=== PATIENT | female | born 1950 | race Caucasian/White ===

== ENCOUNTER 2017-03-03 09:36 | Emergency (ER) | payer MEDICARE, OTHER ==
[~2017-03-03] VITALS: Ht 152.4 cm; Wt 78.0 kg
[~2017-03-03 09:36] MED LIST: ASPI81TA16 PO; ATOR40TA68 PO; CARV6.2579 PO; CILO100T PO; ISOS60TA PO; LEFL20TA18 PO; OMEP40CA6 PO; PRED25 PO
[2017-03-03 09:43] VITALS: Ht 152.4 cm; Wt 78.0 kg
[2017-03-03] MEDS ORDERED: NITROGLYCERIN 2% 1 GM OINT PKT TD STA (10:43)
[2017-03-03] MEDS ORDERED: morphine 4 MG/ML VIAL IV STA (10:43)
[2017-03-03] MEDS ORDERED: ONDANSETRON 4 MG INJ IV STA (10:43)
[2017-03-03] MEDS ORDERED: ASPIRIN 325 MG TAB PO STA (10:43)
[2017-03-03] MEDS ORDERED: OLME1TAB5 PO (10:46)
[2017-03-03] MEDS ORDERED: SUMA50TA3 PO (10:47)
[2017-03-03] MEDS ORDERED: IBUP400T22 PO (10:47)
[2017-03-03 10:57] LABS: ADD SCAN DIFF NO
[2017-03-03 11:02] LABS: BASOPHILS % 0.2 % (0.0-2.0); EOSINOPHILS # 0.1 10^3/ul (0.0-0.5); EOSINOPHILS % 1.2 % (0.0-7.0); HEMATOCRIT 29.9 % (37.0-47.0); HEMOGLOBIN 9.6 g/dl (12.0-16.0); LYMPHOCYTES # 1.9 10^3/ul (0.8-2.9); LYMPHOCYTES % 20.9 % (15.0-51.0); MEAN CORPUSCULAR HEMOGLOBIN 27.7 pg (29.0-33.0); MEAN CORPUSCULAR HGB CONC 32.1 g/dl (32.0-37.0); MEAN CORPUSCULAR VOLUME 86.4 fl (82.0-101.0); MONOCYTE # 0.8 10^3/ul (0.3-0.9); MONOCYTES % 8.9 % (0.0-11.0); NEUTROPHIL # 6.1 10^3/ul (1.6-7.5); NEUTROPHILS % 68.4 % (39.0-77.0); PLATELET COUNT 403 10^3/UL (140-415); RED BLOOD COUNT 3.46 10^6/ul (4.20-5.40); RED CELL DISTRIBUTION WIDTH 15.1 % (11.5-14.5)
--- NOTE | 2017-03-03 11:13 | RADRPT ---
PROCEDURE: Chest x-ray CLINICAL INDICATION: Chest pain TECHNIQUE: Chest single view COMPARISON: 01/08/2016 FINDINGS: The heart is normal in size. The pulmonary vessels are normal in caliber. The lungs are clear. Th e costophrenic angles are sharp. The visualized bony thorax is unremarkable. IMPRESSION: No acute cardiopulmonary disease. RPTAT: HH .Lauro Jackson MD, Date Time Electronically viewed and signed by .Lauro Jackson MD, on 03/03/2017 11:13 .W/
[2017-03-03 11:15] LABS: ALBUMIN 3.5 g/dl (3.3-4.9); CHLORIDE 100 mmol/L (97-110)
[2017-03-03 11:16] LABS: POTASSIUM 3.7 mmol/L (3.5-5.1); SODIUM 139 mmol/L (135-144)
[2017-03-03 11:18] LABS: ANION GAP 15 (8-16); ASPARTATE AMINO TRANSFERASE 18 IU/L (15-46); BILIRUBIN,INDIRECT 0.1 mg/dl (0-1.1); BILIRUBIN,TOTAL 0.1 mg/dl (0.2-1.3); CARBON DIOXIDE 28 mmol/L (21-31); CREATININE 0.72 mg/dl (0.44-1.00)
[2017-03-03 11:19] LABS: ALANINE AMINOTRANSFERASE 18 IU/L (13-69); ALBUMIN/GLOBULIN RATIO 0.85; ALKALINE PHOSPHATASE 61 IU/L (42-121); BLOOD UREA NITROGEN 20 mg/dl (7-20); CALCIUM 9.4 mg/dl (8.4-10.2); GLUCOSE 102 mg/dl (70-220); TOTAL PROTEIN 7.6 g/dl (6.1-8.1)
[2017-03-03 11:23] LABS: INR 1.13; PROTIME 14.5 Sec (12.2-14.2); PT RATIO 1.1
[2017-03-03 11:29] LABS: TROPONIN-I < 0.012 ng/ml (0.00-0.12)
--- NOTE | 2017-03-03 13:49 | ERA ---
ER Documentation Chief Complaint Date/Time DATE: 03/03/17 TIME: 13:47 Chief Complaint CHEST PAIN RADIATING TO ARM PAIN.PRESSURE LIKE PAIN HPI This is 66-year-old female with a history of hypertension high cholesterol rheumatoid arthritis complaining of substernal chest pressure that was severe yesterday and recurred again today that radiates up into the throat with shortness of breath and diaphoresis. The patient was admitted here in 2012 for workup for chest pain has not had a workup since. The patient was admitted here December 2016 for sepsis. Patient says the pain comes on at rest. No recent cough infection fever prerna pain vomiting diarrhea. She says currently her pain is very mild ROS All systems reviewed and are negative except as per history of present illness. Medications Home Meds Reported Medications Ibuprofen* (Ibuprofen*) 400 Mg Tablet, 400 MG PO QID, TAB 03/03/17 Sumatriptan Succinate* (Sumatriptan Succinate*) 50 Mg Tablet, 50 MG PO DAILY Y for MIGRAINE HEADACHE, TAB May repeat after 2 hours if needed; MAX 200 mg/24 hours 03/03/17 Olmesartan/Hydrochlorothiazide (Benicar Hct 40-25 mg Tablet) 1 Each Tablet, 1 EACH PO DAILY, TAB 03/03/17 Isosorbide Mononitrate* (Isosorbide Mononitrate*) 60 Mg Tab.er.24h, 60 MG PO DAILY, TAB 01/06/16 Cilostazol* (Cilostazol*) 100 Mg Tablet, 100 MG PO BID, TAB 01/06/16 Carvedilol* (Carvedilol*) 6.25 Mg Tablet, 6.25 MG PO BID, #60 TAB 01/06/16 Atorvastatin* (Atorvastatin*) 40 Mg Tablet, 40 MG PO QHS, #30 TAB 01/06/16 Leflunomide* (Leflunomide*) 20 Mg Tablet, 20 MG PO DAILY, #30 TAB 01/06/16 Prednisone (Prednisone) 2.5 Mg Tab, 5 MG PO DAILY, TAB 01/06/16 Omeprazole* (Omeprazole*) 40 Mg Capsule.dr, 40 MG PO DAILY, #30 CAP 01/06/16 Discontinued Reported Medications Aspirin (LOW DOSE ASPIRIN EC) 81 Mg Tablet.dr, 81 MG PO DAILY 04/30/13 Allergies Allergies: Coded Allergies: Penicillins (Verified Allergy, Unknown, 01/06/16) hydromorphone (Unverified Adverse Reaction, Severe, 01/07/16) Uncoded Allergies: PCN (Allergy, Severe, rash for 6 months, 04/30/13) "STREPTOMYCIN" (Allergy, Unknown, 01/06/16) PMhx/Soc History of Surgery: Yes Anesthesia Reaction: No Hx Neurological Disorder: No Hx Respiratory Disorders: No Hx Cardiac Disorders: Yes Hx Psychiatric Problems: No Hx Miscellaneous Medical Probl: Yes (Rheumatoid Arthritis) Hx Alcohol Use: No Hx Substance Use: No Hx Tobacco Use: No Smoking Status: Never smoker FmHx Family History: No coronary disease Physical Exam Vitals Vital Signs Date Time Temp Pulse Resp B/P Pulse Ox O2 Delivery O2 Flow Rate FiO2 03/03/17 11:25 83 18 139/81 100 Room Air 03/03/17 09:43 98.1 101 18 125/78 98 Physical Exam Const: Well-developed, well-nourished Head: Atraumatic, normocephalic Eyes: Normal Conjunctiva, PERRLA, EOMI, normal sclera, no nystagmus ENT: Normal External Ears, Nose and Mouth, moist mucus membranes. Neck: Full range of motion. No meningismus, no lymphadenopathy. Resp: Clear to auscultation bilaterally, no wheezing, rhonchi, rales Cardio: Regular rate and rhythm, no murmurs, S1 S2 present Abd: Soft, non tender x 4, non distended. Normal bowel sounds, no guarding or rebound, no pulsitile abdominal masses or bruits Skin: No petechiae or rashes, no ecchymosis , no maculopapular rash Back: No midline or flank tenderness Ext: No cyanosis, or edema, FROM x 4, normal inspection, neurovascularly intact x 4 Neur: Awake and alert, STR 5/5 x 4, sensation intact x 4, no focal findings, cerebellum intact Psych: Normal Mood and Affect Result Diagram: 03/03/17 1035 03/03/17 1035 Results 24 hrs Laboratory Tests Test 03/03/17 10:35 White Blood Count 9.010^3/ul Red Blood Count 3.4610^6/ul Hemoglobin 9.6g/dl Hematocrit 29.9% Mean Corpuscular Volume 86.4fl Mean Corpuscular Hemoglobin 27.7pg Mean Corpuscular Hemoglobin Concent 32.1g/dl Red Cell Distribution Width 15.1% Platelet Count 10724^3/UL Mean Platelet Volume 9.0fl Neutrophils % 68.4% Lymphocytes % 20.9% Monocytes % 8.9% Eosinophils % 1.2% Basophils % 0.2% Nucleated Red Blood Cells % 0.0/100WBC Neutrophils # 6.110^3/ul Lymphocytes # 1.910^3/ul Monocytes # 0.810^3/ul Eosinophils # 0.110^3/ul Basophils # 0.010^3/ul Nucleated Red Blood Cells # 0.010^3/ul Prothrombin Time 14.5Sec Prothrombin Time Ratio 1.1 INR International Normalized Ratio 1.13 Activated Partial Thromboplast Time Pending Sodium Level 139mmol/L Potassium Level 3.7mmol/L Chloride Level 100mmol/L Carbon Dioxide Level 28mmol/L Anion Gap 15 Blood Urea Nitrogen 20mg/dl Creatinine 0.72mg/dl Glucose Level 102mg/dl Calcium Level 9.4mg/dl Total Bilirubin 0.1mg/dl Direct Bilirubin 0.00mg/dl Indirect Bilirubin 0.1mg/dl Aspartate Amino Transf (AST/SGOT) 18IU/L Alanine Aminotransferase (ALT/SGPT) 18IU/L Alkaline Phosphatase 61IU/L Troponin I < 0.012ng/ml Total Protein 7.6g/dl Albumin 3.5g/dl Globulin 4.10g/dl Albumin/Globulin Ratio 0.85 Current Medications Medications (Trade) Dose Ordered Sig/[place] Route PRN Reason Start Time Stop Time Status Last Admin Dose Admin Aspirin (Aspirin) 325 mg ONCE STAT PO 03/03/17 10:43 03/03/17 10:45 DC 03/03/17 10:58 Nitroglycerin (Nitroglycerin 2% Oint) 1 inch ONCE STAT TD 03/03/17 10:43 03/03/17 10:45 DC 03/03/17 10:59 Morphine Sulfate (morphine) 4 mg ONCE STAT IV 03/03/17 10:43 03/03/17 10:45 DC 03/03/17 11:00 Ondansetron HCl (Zofran Inj) 4 mg ONCE STAT IV 03/03/17 10:43 03/03/17 10:45 DC 03/03/17 11:00 Procedures/MDM PROCEDURE: Chest x-ray CLINICAL INDICATION: Chest pain TECHNIQUE: Chest single view COMPARISON: 01/08/2016 FINDINGS: The heart is normal in size. The pulmonary vessels are normal in caliber. The lungs are clear. The costophrenic angles are sharp. The visualized bony thorax is unremarkable. IMPRESSION: No acute cardiopulmonary disease. RPTAT: .Lauro Jackson MD, MD Date Time Electronically viewed and signed by .Lauro Jackson MD, on 03/03/2017 11:13 .W/ CC: ROCHELLE PEREZ DO EKG: Rate/Rhythm: Normal Sinus Rhythm,NL intervals QRS, ST, QT: NORMAL UT, QRS, QT] Impression: NORMAL EKG Patient's symptoms are concerning for cardiac cause will require inpatient workup and continuous monitoring. Further w/u for ischemia, arrhythmia, PE or dissection will be deferred to the inpatient team. Accepting Care Team: Current data and ongoing care discussed. Time: Time of admission Primary Provider: Vicente Consulting: [facility] Outstanding Data: none Departure Diagnosis: Primary Impression: Chest pain Qualified Code: R07.9 - Chest pain, unspecified type Condition: Stable ROCHELLE PEREZ DO Mar 03, 2017 13:49
[2017-03-03] MEDS ORDERED: ACETAMINOPHEN 325 MG TAB PO PRN ×2 (14:00→15:00)
[2017-03-03] MEDS ORDERED: ONDANSETRON 4 MG INJ IV PRN ×2 (14:00→15:00)
[2017-03-03 14:22] LABS: PARTIAL THROMBOPLASTIN TIME 27.3 Sec (25.0-35.0)
[2017-03-03] MEDS ORDERED: SUMATRIPTAN 50 MG TAB PO PRN (15:00)
[2017-03-03] MEDS ORDERED: NACL 0.9% 3 ML SYG IV SCH (15:00)
[2017-03-03] MEDS ORDERED: HYDROCODONE/APAP (5/325) TAB PO PRN (15:00)
[2017-03-03] MEDS ORDERED: BISACODYL 10 MG SUPP PR PRN (15:00)
[2017-03-03] MEDS ORDERED: MAGNESIUM HYDROXIDE 30ML CUP PO PRN (15:00)
[2017-03-03] MEDS ORDERED: DOCUSATE SODIUM 100 MG CAP PO PRN (15:00)
--- NOTE | 2017-03-03 15:47 | CONS ---
Date/Time of Note Date/Time of Note DATE: 03/03/17 TIME: 15:46 Assessment/Plan Assessment/Plan Additional Assessment/Plan ATYPICAL CEHST PAIN RA HTN HLP -CHECK TROPS, ECHO, EKGS MONIOTR ON TELE LOW LIKELIHOOD OF CAD ETIOLOGY LEIXSCAN CARDIOLTYE AM Consultation Date/Type/Reason Admit Date/Time Hx of Present Illness This is 66-year-old female with a history of hypertension high cholesterol rheumatoid arthritis complaining of chest pressure that was severe yesterday and recurred again today that radiates up into the throat with shortness of breath and diaphoresis. The patient was admitted here in 2012 for workup for chest pain has not had a workup since. The patient was admitted here December 2016 for sepsis. Patient says the pain comes on at rest. No recent cough infection fever prerna pain vomiting diarrhea. She says currently her pain is very mild. The patient is vairly constant fover the last day, epigastric, localized and no assoiced sytmoms - deneis substernal pain Social History Smoking Status: Never smoker Exam/Review of Systems Vital Signs Vitals Vital Signs Date Time Temp Pulse Resp B/P Pulse Ox O2 Delivery O2 Flow Rate FiO2 03/03/17 11:25 83 18 139/81 100 Room Air 03/03/17 09:43 98.1 Results Result Diagram: 03/03/17 1035 03/03/17 1035 Results 24 hrs Laboratory Tests Test 03/03/17 10:35 White Blood Count 9.0 # Red Blood Count 3.46 #L Hemoglobin 9.6 #L Hematocrit 29.9 #L Mean Corpuscular Volume 86.4 Mean Corpuscular Hemoglobin 27.7 L Mean Corpuscular Hemoglobin Concent 32.1 Red Cell Distribution Width 15.1 H Platelet Count 403 Mean Platelet Volume 9.0 Neutrophils % 68.4 Lymphocytes % 20.9 Monocytes % 8.9 Eosinophils % 1.2 Basophils % 0.2 Nucleated Red Blood Cells % 0.0 Neutrophils # 6.1 Lymphocytes # 1.9 Monocytes # 0.8 Eosinophils # 0.1 Basophils # 0.0 Nucleated Red Blood Cells # 0.0 Prothrombin Time 14.5 H Prothrombin Time Ratio 1.1 INR International Normalized Ratio 1.13 Activated Partial Thromboplast Time 27.3 Sodium Level 139 Potassium Level 3.7 Chloride Level 100 Carbon Dioxide Level 28 Anion Gap 15 Blood Urea Nitrogen 20 Creatinine 0.72 Glucose Level 102 Calcium Level 9.4 Total Bilirubin 0.1 L Direct Bilirubin 0.00 Indirect Bilirubin 0.1 Aspartate Amino Transf (AST/SGOT) 18 Alanine Aminotransferase (ALT/SGPT) 18 Alkaline Phosphatase 61 Troponin I < 0.012 Total Protein 7.6 Albumin 3.5 Globulin 4.10 H Albumin/Globulin Ratio 0.85 Medications Medications Current Medications Atorvastatin Calcium (Lipitor) 40 mg QHS PO ; Start 03/03/17 at 21:00 Carvedilol (Coreg) 6.25 mg BID PO ; Start 03/03/17 at 21:00 Isosorbide Mononitrate (Imdur) 60 mg DAILY PO ; Start 03/04/17 at 09:00 Leflunomide (Arava) 20 mg DAILY PO ; Start 03/04/17 at 09:00; Status UNV Prednisone (Prednisone) 5 mg DAILY PO ; Start 03/04/17 at 09:00 Sumatriptan Succinate (Imitrex) 50 mg DAILY PRN PO MIGRAINE HEADACHE; Start at 15:00 Miscellaneous Information 1 each DAILY PO ; Start 03/04/17 at 09:00; Status UNV Ondansetron HCl (Zofran Inj) 4 mg Q6H PRN IV NAUSEA AND/OR VOMITING; Start at 15:00 Aspirin (Aspirin) 81 mg DAILY PO ; Start 03/04/17 at 09:00 Acetaminophen (Tylenol Tab) 650 mg Q6H PRN PO PAIN LEVEL 1-3 OR FEVER; Start at 15:00 Acetaminophen/ Hydrocodone Bitart ([place] (5/325)) 1 tab Q6H PRN PO PAIN LEVEL 4 -6; Start 03/03/17 at 15:00 Docusate Sodium (Colace) 100 mg Q12H PRN PO CONSTIPATION; Start 03/03/17 at 15: 00 Magnesium Hydroxide (Milk Of Mag) 30 ml DAILY PRN PO CONSTIPATION; Start at 15:00 Bisacodyl (Dulcolax Supp) 10 mg DAILY PRN [place] CONSTIPATION; Start 03/03/17 at 15 :00 Pantoprazole (Protonix Tab) 40 mg BID PO ; Start 03/03/17 at 21:00 MAGNOLIA LUNDBERG MD Mar 03, 2017 15:47
[2017-03-03] MEDS ORDERED: predniSONE 2.5 MG TAB PO SCH (16:00)
[2017-03-03 16:58] LABS: CREATINE KINASE 23 IU/L (23-200)
[2017-03-03] MEDS ORDERED: IBUPROFEN 400 MG TAB PO SCH (17:00)
[2017-03-03 17:07] LABS: CK-MB < 0.22 ng/ml (0.0-2.4)
[2017-03-03 17:16] LABS: TROPONIN-I < 0.012 ng/ml (0.00-0.12)
[2017-03-03 17:17] VITALS: BP 107/70; PULSE 78; RESP 18
--- NOTE | 2017-03-03 17:20 | HP ---
DATE OF ADMISSION: 03/03/2017 PRIMARY CARE PHYSICIAN: Dr. Coronado, dairy feed sales consultant on this admission. PRIMARY METAL SANDER: Dr. Lundberg from Cardiology. CHIEF COMPLAINT ON ADMISSION: Chest pressure. HISTORY OF PRESENT ILLNESS: This is a 66-year-old female with history of hypertension, hyperlipidem ia, rheumatoid arthritis, chronic pain, and migraine headache who currently is also on prednisone an d NSAIDs, ibuprofen, who presented to the emergency department with complaint of epigastric chest pr essure, substernal chest pressure radiating to her neck. The patient reports that she has been havi ng these symptoms for the past 3 months on and off, but it became very severe over the past 24 hours and today was concerning, as the patient was also having nausea, some dizziness and according to e ER physician, diaphoresis, but the patient is denying it currently. Her vital signs are stable. She sees ____ as an outpatient for cardiac followup. She denies any previous history of nolasco ry artery disease or heart attacks. Her blood pressure is stable here. She saw her heat treating furnace tender yesterday, who gave her cortisone shots and adjusted her medication. She is on prednisone 7.5 mg da emelia for her rheumatoid arthritis. She denies any headache or neurological deficit. She denies any fevers, chills, cough or recent infection. She denies any diarrhea or constipation. She does have some chronic lower extremity nondependent edema and denies any shortness of breath except when she i s having the episode of chest pressure. She is being admitted to a telemetry bed on observation for rule out acute coronary syndrome. ALLERGIES: 1. PENICILLIN. 2. HYDROMORPHONE 3. STREPTOMYCIN. PAST MEDICAL HISTORY: 1. Hypertension. 2. Hyperlipidemia. 3. Chronic pain secondary to rheumatoid arthritis. 4. Rheumatoid arthritis. 5. Migraine headaches. PAST SURGICAL HISTORY: Status post hysterectomy 20 years ago. REVIEW OF SYSTEMS: As per HPI. OUTPATIENT MEDICATIONS: 1. Cilostazol 100 mg p.o. b.i.d. 2. Atorvastatin 40 mg p.o. at bedtime. 3. Carvedilol 6.25 mg p.o. b.i.d. 4. Isosorbide mononitrate 60 mg p.o. daily. 5. Benicar/hydrochlorothiazide 40/25 one tab p.o. daily. 6. Ibuprofen 400 mg p.o. The patient reports taking it b.i.d. 7. Imitrex 50 mg daily as needed for migraine headaches. 8. Omeprazole 40 mg p.o. daily. 9. Prednisone 2.5 mg p.o. daily. 10. Leflunomide 20 mg p.o. daily. PHYSICAL EXAMINATION: VITAL SIGNS: Temperature is 98.1, heart rate of 82, sinus rhythm, respiratory rate of 18, blood pre ssure 122/69. Patient is saturating 94% on room air. GENERAL: She is alert and oriented x4. Currently, she is in no acute distress. She reports that h er chest pressure has resolved. HEENT: Pupils are equally round and reactive to light. Extraocular muscles are intact. Anicteric sclerae. NECK: No JVD, no thyromegaly noted. HEART: Regular rate and rhythm. No murmur, rubs, or gallops. LUNGS: Clear to auscultation bilaterally. ABDOMEN: Soft, nontender, nondistended. Bowel sounds are present. EXTREMITIES: No clubbing or cyanosis. She has mild nondependent edema. LABORATORY DATA: White blood cell count 9.0, hemoglobin 9.6, hematocrit 29.9, platelet count of 403 . Chemistry with a sodium of 139, potassium 3.7, chloride 100, bicarbonate 28, BUN 20, creatinine 0 .72, glucose of 102. Total bilirubin 0.1. ALT 18, ALT 18, alkaline phosphatase 61. Troponin less than 0.012. Total protein 7.6, albumin of 3.5. INR is 1.13, PT 14.5, PTT 27.2. ELECTROCARDIOGRAM: Sinus rhythm, no acute abnormality seen. RADIOLOGICAL DATA: Chest x-ray today shows no acute cardiopulmonary disease. ASSESSMENT AND PLAN: This is a 66-year-old female with: 1. Chest pain, chest pressure that is likely atypical. I have discussed the case with Dr. Lundberg, we will rule her out with 2 more cardiac enzymes at this point and we are planning for stress test i n the morning, echo is also ordered. This chest pressure, chest pain is likely atypical. I did put her on Protonix b.i.d. given the fact that she has been taking NSAIDs and also on steroids. She mena s been taking omeprazole once a day. We will check TSH and free T4 as the patient is reporting occa sional palpitations. A 2D echocardiogram is pending. We will also check a fasting lipid panel and hemoglobin A1c. 2. Rheumatoid arthritis, currently under the care of her heat treating furnace tender, she did see yesterday and adjusted her medication. We will continue her current regimen. We will make sure for her to get th e prednisone today. 3. Hypertension. Continue outpatient medications. 4. Hyperlipidemia. Check fasting lipid panel in a.m. Continue statin therapy. 5. Chronic pain secondary to rheumatoid arthritis. Continue [place] as needed for pain management. For now, we will stay away from ibuprofen. 6. Prophylaxis. Sequential compression devices to lower extremities for deep vein thrombosis proph ylaxis and patient already on proton pump inhibitors. DISPOSITION: We will rule out for acute coronary syndrome with 2 more sets of cardiac enzymes overn ight and plan for a stress test in the morning. Dictated By: FREDI CORONADO MD NK/NTS Conf#: [id number] DID#: [id number] CC: MAGNOLIA LUNDBERG MD;*EndCC*
[2017-03-03] MEDS ORDERED: ATORVASTATIN 40 MG TAB PO SCH (21:00)
[2017-03-03] MEDS ORDERED: PANTOPRAZOLE (EC) 40 MG TAB PO SCH (21:00)
[2017-03-04] MEDS ORDERED: LEFLUNOMIDE 20 MG TAB PO SCH (09:00)
[2017-03-04] MEDS ORDERED: ISOSORBIDE MONONITRATE(SR)60 MG TAB PO SCH (09:00)
[2017-03-04] MEDS ORDERED: predniSONE 5 MG TAB PO SCH (09:00)
[2017-03-04] MEDS ORDERED: ASPIRIN 81 MG TAB PO SCH (09:00)
[2017-03-04] MEDS ORDERED: LOSARTAN 50 MG TAB PO SCH (09:00)
[2017-03-04] MEDS ORDERED: HYDROCHLOROTHIAZIDE 25 MG TAB PO SCH (09:00)
--- NOTE | 2017-03-05 11:11 | DS ---
DATE OF ADMISSION: 03/03/2017 DATE OF DISCHARGE: 03/03/2017 The patient left against medical advice. ADMITTING PHYSICIAN: Emil Coronado MD CONSULTANTS DURING THIS ADMISSION: Dr. Pulido CHIEF COMPLAINT ON ADMISSION: Chest pressure. BRIEF HISTORY OF PRESENT ILLNESS: This is a 66-year-old female with history of hypertension, hyperl ipidemia, rheumatoid arthritis, chronic pain, migraine headaches, currently on prednisone and NSAIDs including ibuprofen, who presented to the emergency department with epigastric chest pressure, subs ternal chest pressure radiating to her neck with symptoms for the past 3 months on and off, but wors ened the day prior to admission. The patient does have a vegetable washer, Dr. Ford. She was e valuated by Dr. Pulido in the emergency department already and she is being admitted to telemetry fo r rule out acute coronary syndrome. HOSPITAL COURSE: The patient was in the emergency department. Actually, she had cardiac enzymes dr munoz and negative x2. Her echocardiogram was ordered and after discussion with Dr. Pulido, her chest pressure is likely to be atypical. A stress test was going to be done the day after. The patient decided to leave against medical advice, according to the notes from the emergency department aroun d 1840 on the same day. She therefore left against medical advice. DISPOSITION: The patient left against medical advice. FOLLOWUP: Hopefully, the patient will follow up with her primary care physician and her cardiolog ist as an outpatient. Dictated By: EMIL CORONADO MD NK/NTS Conf#: [id number] DID#: [id number]
== END 2017-03-03 18:40 | disposition left against medical advice (07) ==
LOC: E/R 09:36
DX: R07.89 Other chest pain (principal); Z79.82 Long term (current) use of aspirin
CPT/HCPCS: 71010; 80053; 82550; 82553; 84484; 85025; 85610; 85730; 93005; 96374; 96375; 99285; J2270; J2405; J7512

== ENCOUNTER 2017-08-08 10:28 | Emergency (ER) | payer MEDICARE, OTHER ==
[~2017-08-08] VITALS: Ht 162.6 cm; Wt 84.0 kg
[~2017-08-08 10:28] MED LIST changes: -ASPI81TA16 PO; +IBUP400T22 PO; +OLME1TAB5 PO; +SUMA50TA3 PO
[2017-08-08 10:29] VITALS: Ht 162.6 cm; Wt 84.0 kg
[2017-08-08] MEDS ORDERED: SOD CHLORIDE 0.9% 500 ML IV STA (11:01)
[2017-08-08] MEDS ORDERED: morphine 4 MG/ML VIAL IV STA (11:01)
[2017-08-08] MEDS ORDERED: ONDANSETRON 4 MG INJ IV STA (11:01)
[2017-08-08 11:23] LABS: BASOPHIL # 0.1 10^3/ul (0.0-0.1); BASOPHILS % 0.5 % (0.0-2.0); EOSINOPHILS # 0.2 10^3/ul (0.0-0.5); EOSINOPHILS % 1.6 % (0.0-7.0); HEMATOCRIT 39.4 % (37.0-47.0); HEMOGLOBIN 12.7 g/dl (12.0-16.0); LYMPHOCYTES # 2.1 10^3/ul (0.8-2.9); LYMPHOCYTES % 21.5 % (15.0-51.0); MEAN CORPUSCULAR HGB CONC 32.2 g/dl (32.0-37.0); MEAN CORPUSCULAR VOLUME 92.9 fl (82.0-101.0); MEAN PLATELET VOLUME 9.7 fl (7.4-10.4); MONOCYTE # 0.9 10^3/ul (0.3-0.9); MONOCYTES % 8.8 % (0.0-11.0); NEUTROPHIL # 6.6 10^3/ul (1.6-7.5); NEUTROPHILS % 67.2 % (39.0-77.0); PLATELET COUNT 264 10^3/UL (140-415); RED BLOOD COUNT 4.24 10^6/ul (4.20-5.40); RED CELL DISTRIBUTION WIDTH 14.3 % (11.5-14.5); WHITE BLOOD COUNT 9.8 10^3/ul (4.8-10.8)
[2017-08-08] MEDS ORDERED: NICARDipine HCL 30 MG CAPSULE PO ONE (11:30)
[2017-08-08 11:43] LABS: ALANINE AMINOTRANSFERASE 43 IU/L (13-69); ALBUMIN 4.7 g/dl (3.3-4.9); ALBUMIN/GLOBULIN RATIO 1.34; ALKALINE PHOSPHATASE 64 IU/L (42-121); ANION GAP 13 (8-16); ASPARTATE AMINO TRANSFERASE 26 IU/L (15-46); BILIRUBIN,INDIRECT 0.3 mg/dl (0-1.1); BILIRUBIN,TOTAL 0.3 mg/dl (0.2-1.3); BLOOD UREA NITROGEN 12 mg/dl (7-20); CALCIUM 9.6 mg/dl (8.4-10.2); CARBON DIOXIDE 32 mmol/L (21-31); CHLORIDE 99 mmol/L (97-110); CREATININE 0.79 mg/dl (0.44-1.00); GLUCOSE 115 mg/dl (70-220); POTASSIUM 3.5 mmol/L (3.5-5.1); SODIUM 140 mmol/L (135-144); TOTAL PROTEIN 8.2 g/dl (6.1-8.1)
[2017-08-08 11:59] LABS: TROPONIN-I < 0.012 ng/ml (0.00-0.12)
[2017-08-08] MEDS ORDERED: SOD CHLORIDE 0.9% 100 ML ONE (12:30)
[2017-08-08] MEDS ORDERED: IOHEXOL 300MG/ML 150 ML BTL ONE (12:30)
[2017-08-08] MEDS ORDERED: PRED1TAB2 PO (12:58)
[2017-08-08] MEDS ORDERED: IBUP-1542 PO (12:59)
--- NOTE | 2017-08-08 13:42 | RADRPT ---
PROCEDURE: CT Abdomen and Pelvis with contrast. CLINICAL INDICATION: Right lower quadrant pain TECHNIQUE: CT scan of the abdomen and pelvis with contrast was performed on a multi-detector high- resolution CT scanner. The patient was scanned following the uncomplicated intravenous administrati on of 90 cc of Omnipaque-300. Coronal and sagittal reformatted images were obtained from the axial source images. Images were reviewed on a high-resolution PACS workstation. The total exam CTDI equal s 16.87 mGy and the total exam DLP equals 945.74 mGy-cm. One or more of the following dose reduction techniques were used: Automated exposure control. Adjustment of the mA and/or kV according to patient size. Use of iterative reconstruction technique. COMPARISON: None. FINDINGS: CT abdomen: The lung bases are clear. The heart size is normal, without pericardial thickening or effusion. Th e liver is normal in size and density without focal mass or intrahepatic biliary dilatation. There i s approximately 1 cm cyst in the anterior right hepatic lobe. The spleen is normal in size and homog eneous in density. The stomach is partially collapsed, but is grossly unremarkable. The pancreas a s visualized is normal. The gallbladder is unremarkable.. There is no evidence for biliary dilatat ion. The adrenal glands are symmetric and normal. The kidneys are symmetrically unremarkable as we ll. No renal calculus or obstructive uropathy or mass lesion is seen. The aorta is of normal caliber. Aortic vascular calcifications are present. There is no retroperit condon lymphadenopathy. The gonzalo hepatis region is clear. The bowel and mesentery, as visualized, are equally unremarkable. CT pelvis: The small bowel loops situated within the pelvis are unremarkable. The appendix is normal . The uter us is not identified. The pelvic sidewalls and inguinal regions are clear. The sigmoid colon and re ctum are remarkable for a few sigmoid diverticula without evidence of acute diverticulitis.. No mas s, lymphadenopathy, or free fluid is seen. No acute inflammation is seen. The bladder is normal. T he surrounding osseous structures are unremarkable. No osteolytic or osteoblastic lesion is detecte d. IMPRESSION: 1. No mass, lymphadenopathy, or focal acute inflammatory process is identified. 2. Normal appendix. 3. A few sigmoid diverticula without evidence of acute diverticulitis. 4. Scattered aortoiliac atherosclerosis. RPTAT: EE .Rolan Durham MD, MD Date Time Electronically viewed and signed by .Rolan Durham MD, MD on 08/08/2017 13:42 .O/
[2017-08-08] MEDS ORDERED: AMLO-218 PO (14:15)
[2017-08-08] MEDS ORDERED: TRAM50TA2 PO (14:15)
--- NOTE | 2017-08-08 14:18 | ERD ---
ER Documentation Chief Complaint Date/Time DATE: 08/08/17 TIME: 14:16 Chief Complaint HAS HTN, right lower quadrant pain HPI This is a 67-year-old female who complains of 4 days of uncontrolled blood pressure with systolic of 200 and diastolic of 100. No chest pain or shortness of breath and she is also complaining of a 5-6 day history of worsening right lower quadrant pain described as constant and achy there is some periods of relief but it is more regular the past 2 days. She says there is some mild pain with walking there is no dysuria or hematuria she also says that she has no nausea vomiting or diarrhea. She is here with her son who is concerned that she has appendicitis. ROS All systems reviewed and are negative except as per history of present illness. Medications Home Meds Active Scripts Tramadol HCl (Tramadol HCl) 50 Mg Tablet, 50 MG PO Q6, #20 TAB Prov:ROCHELLE PEREZ DO 08/08/17 Amlodipine Besylate* (Norvasc*) 10 Mg Tablet, 10 MG PO QHS, #30 TAB Prov:ROCHELLE PEREZ DO 08/08/17 Reported Medications Ibuprofen* (Ibuprofen*) 600 Mg Tablet, 600 MG PO DAILY Y for PAIN, TAB 08/08/17 Prednisone* (Prednisone*) 1 Mg Tablet, 1 MG PO for 30 Days, #120 TAB 08/08/17 Sumatriptan Succinate* (Sumatriptan Succinate*) 50 Mg Tablet, 50 MG PO DAILY Y for MIGRAINE HEADACHE, TAB May repeat after 2 hours if needed; MAX 200 mg/24 hours 03/03/17 Olmesartan/Hydrochlorothiazide (Benicar Hct 40-25 mg Tablet) 1 Each Tablet, 1 EACH PO DAILY, TAB 03/03/17 Isosorbide Mononitrate* (Isosorbide Mononitrate*) 60 Mg Tab.er.24h, 60 MG PO DAILY, TAB 01/06/16 Cilostazol* (Cilostazol*) 100 Mg Tablet, 100 MG PO BID, TAB 01/06/16 Carvedilol* (Carvedilol*) 6.25 Mg Tablet, 6.25 MG PO BID, #60 TAB 01/06/16 Atorvastatin* (Atorvastatin*) 40 Mg Tablet, 40 MG PO QHS, #30 TAB 01/06/16 Leflunomide* (Leflunomide*) 20 Mg Tablet, 20 MG PO DAILY, #30 TAB 01/06/16 Omeprazole* (Omeprazole*) 40 Mg Capsule.dr, 40 MG PO DAILY, #30 CAP 01/06/16 Discontinued Reported Medications Ibuprofen* (Ibuprofen*) 400 Mg Tablet, 400 MG PO QID, TAB 03/03/17 Prednisone (Prednisone) 2.5 Mg Tab, 5 MG PO DAILY, TAB 01/06/16 Allergies Allergies: Coded Allergies: Penicillins (Verified Allergy, Unknown, 08/08/17) hydromorphone (Unverified Adverse Reaction, Severe, 08/08/17) Uncoded Allergies: PCN (Allergy, Severe, rash for 6 months, 04/30/13) "STREPTOMYCIN" (Allergy, Unknown, 01/06/16) PMhx/Soc History of Surgery: Yes Anesthesia Reaction: No Hx Neurological Disorder: No Hx Respiratory Disorders: No Hx Cardiac Disorders: Yes Hx Psychiatric Problems: No Hx Miscellaneous Medical Probl: Yes (Rheumatoid Arthritis) Hx Alcohol Use: No Hx Substance Use: No Hx Tobacco Use: No Smoking Status: Never smoker FmHx Family History: No coronary disease Physical Exam Vitals Vital Signs Date Time Temp Pulse Resp B/P Pulse Ox O2 Delivery O2 Flow Rate FiO2 08/08/17 13:23 106 18 149/79 99 Room Air 08/08/17 10:29 98.4 104 18 201/109 97 Physical Exam Const: Well-developed, well-nourished Head: Atraumatic, normocephalic Eyes: Normal Conjunctiva, PERRLA, EOMI, normal sclera, no nystagmus ENT: Normal External Ears, Nose and Mouth, moist mucus membranes. Neck: Full range of motion. No meningismus, no lymphadenopathy. Resp: Clear to auscultation bilaterally, no wheezing, rhonchi, rales Cardio: Regular rate and rhythm, no murmurs, S1 S2 present Abd: Soft, mild to moderate right lower quadrant tenderness, non distended. Normal bowel sounds, no guarding or rebound, no pulsitile abdominal masses or bruits Skin: No petechiae or rashes, no ecchymosis , no maculopapular rash Back: No midline or flank tenderness Ext: No cyanosis, or edema, FROM x 4, normal inspection, neurovascularly intact x 4 Neur: Awake and alert, STR 5/5 x 4, sensation intact x 4, no focal findings, cerebellum intact Psych: Normal Mood and Affect Result Diagram: 08/08/17 1106 08/08/17 1106 Results 24 hrs Laboratory Tests Test 08/08/17 11:06 White Blood Count 9.810^3/ul Red Blood Count 4.2410^6/ul Hemoglobin 12.7g/dl Hematocrit 39.4% Mean Corpuscular Volume 92.9fl Mean Corpuscular Hemoglobin 30.0pg Mean Corpuscular Hemoglobin Concent 32.2g/dl Red Cell Distribution Width 14.3% Platelet Count 07230^3/UL Mean Platelet Volume 9.7fl Neutrophils % 67.2% Lymphocytes % 21.5% Monocytes % 8.8% Eosinophils % 1.6% Basophils % 0.5% Nucleated Red Blood Cells % 0.0/100WBC Neutrophils # 6.610^3/ul Lymphocytes # 2.110^3/ul Monocytes # 0.910^3/ul Eosinophils # 0.210^3/ul Basophils # 0.110^3/ul Nucleated Red Blood Cells # 0.010^3/ul Sodium Level 140mmol/L Potassium Level 3.5mmol/L Chloride Level 99mmol/L Carbon Dioxide Level 32mmol/L Anion Gap 13 Blood Urea Nitrogen 12mg/dl Creatinine 0.79mg/dl Glucose Level 115mg/dl Calcium Level 9.6mg/dl Total Bilirubin 0.3mg/dl Direct Bilirubin 0.00mg/dl Indirect Bilirubin 0.3mg/dl Aspartate Amino Transf (AST/SGOT) 26IU/L Alanine Aminotransferase (ALT/SGPT) 43IU/L Alkaline Phosphatase 64IU/L Troponin I < 0.012ng/ml Total Protein 8.2g/dl Albumin 4.7g/dl Globulin 3.50g/dl Albumin/Globulin Ratio 1.34 Lipase 77U/L Current Medications Medications (Trade) Dose Ordered Sig/[place] Route PRN Reason Start Time Stop Time Status Last Admin Dose Admin Sodium Chloride (NS) 500 ml @ 500 mls/hr Q1H STAT IV 08/08/17 11:01 08/08/17 12:00 DC 08/08/17 11:17 Ondansetron HCl (Zofran Inj) 4 mg ONCE STAT IV 08/08/17 11:01 08/08/17 11:07 DC 08/08/17 11:17 Nicardipine HCl (Cardene) 30 mg ONCE ONCE PO 08/08/17 11:30 08/08/17 11:31 DC 08/08/17 11:18 Morphine Sulfate (morphine) 4 mg ONCE STAT IV 08/08/17 11:01 08/08/17 11:07 DC 08/08/17 11:18 IV Flush 10 ml 10 ml STK-MED ONCE .ROUTE 08/08/17 12:30 08/08/17 12:31 DC Sodium Chloride (NS) 100 ml @ ud STK-MED ONCE .ROUTE 08/08/17 12:30 08/08/17 12:31 DC Iohexol (Omnipaque 300mg/ ml) 150 ml STK-MED ONCE .ROUTE 08/08/17 12:30 08/08/17 12:31 DC Procedures/MDM PROCEDURE: CT Abdomen and Pelvis with contrast. CLINICAL INDICATION: Right lower quadrant pain TECHNIQUE: CT scan of the abdomen and pelvis with contrast was performed on a multi-detector high-resolution CT scanner. The patient was scanned following the uncomplicated intravenous administration of 90 cc of Omnipaque-300. Coronal and sagittal reformatted images were obtained from the axial source images. Images were reviewed on a high-resolution PACS workstation. The total exam CTDI equals 16.87 mGy and the total exam DLP equals 945.74 mGy-cm. One or more of the following dose reduction techniques were used: Automated exposure control. Adjustment of the mA and/or kV according to patient size. Use of iterative reconstruction technique. COMPARISON: None. FINDINGS: CT abdomen: The lung bases are clear. The heart size is normal, without pericardial thickening or effusion. The liver is normal in size and density without focal mass or intrahepatic biliary dilatation. There is approximately 1 cm cyst in the anterior right hepatic lobe. The spleen is normal in size and homogeneous in density. The stomach is partially collapsed, but is grossly unremarkable. The pancreas as visualized is normal. The gallbladder is unremarkable.. There is no evidence for biliary dilatation. The adrenal glands are symmetric and normal. The kidneys are symmetrically unremarkable as well. No renal calculus or obstructive uropathy or mass lesion is seen. The aorta is of normal caliber. Aortic vascular calcifications are present. There is no retroperitoneal lymphadenopathy. The gonzalo hepatis region is clear. The bowel and mesentery, as visualized, are equally unremarkable. CT pelvis: The small bowel loops situated within the pelvis are unremarkable. The appendix is normal . The uterus is not identified. The pelvic sidewalls and inguinal regions are clear. The sigmoid colon and rectum are remarkable for a few sigmoid diverticula without evidence of acute diverticulitis.. No mass, lymphadenopathy, or free fluid is seen. No acute inflammation is seen. The bladder is normal. The surrounding osseous structures are unremarkable. No osteolytic or osteoblastic lesion is detected. IMPRESSION: 1. No mass, lymphadenopathy, or focal acute inflammatory process is identified. 2. Normal appendix. 3. A few sigmoid diverticula without evidence of acute diverticulitis. 4. Scattered aortoiliac atherosclerosis. RPTAT: EE .Rolan Durham MD, MD Date Time Electronically viewed and signed by .Rolan Durham MD, on 08/08/2017 13:42 .O/ CC: ROCHELLE PEREZ DO Patient's blood pressure is 149/79 at discharge. Patient started maxed out on her ARB/hydrochlorothiazide. She is also on Coreg. Rather not increase the beta-cristian will add some Norvasc at night. Gave him strict warning signs to return for his precautions Departure Diagnosis: Primary Impression: Right lower quadrant abdominal pain Additional Impression: Hypertension Hypertension type: unspecified Qualified Code: I10 - Hypertension, unspecified type Condition: Stable Patient Instructions: High Blood Pressure (Hypertension), Abdominal Pain, Unknown Cause, (Female), Abdominal Pain During , Suspected Gallstones ROCHELLE PEREZ DO Aug 08, 2017 14:18
[2017-08-08 14:59] VITALS: BP 136/62; PULSE 101; RESP 18; TEMP 98.6
== END 2017-08-08 15:00 | disposition home or self-care (01) ==
LOC: E/R 10:28
DX: R10.31 Right lower quadrant pain (principal); I10 Essential (primary) hypertension
CPT/HCPCS: 36415; 74177; 80053; 83690; 84484; 85025; 96374; 96375; 99285; J2270; J2405; J7040; Q9967

== ENCOUNTER 2018-02-17 09:28 | Emergency (ER) | END 2018-02-17 12:13 | disposition home or self-care (01) ==

== ENCOUNTER 2019-01-03 00:48 | Emergency (ER) | payer MEDICARE, MEDICAID ==
[~2019-01-03] VITALS: Ht 165.1 cm; Wt 82.2 kg
[~2019-01-03 00:48] MED LIST changes: +AMLO-218 PO; +DOCU-144 PO; +HYDR-4011 PO; +IBUP-1542 PO; -IBUP400T22 PO; +OLME1TAB27 PO; -OLME1TAB5 PO; -OMEP40CA6 PO; -PRED25 PO; +TRAM50TA2 PO
[2019-01-03 00:50] VITALS: Ht 165.1 cm; Wt 82.2 kg
[2019-01-03] MEDS ORDERED: hydrALAzine 20 MG INJ IV ONE (02:00)
[2019-01-03] MEDS ORDERED: HYDR-3671 PO (03:25)
--- NOTE | 2019-01-03 03:25 | ERD ---
ER Documentation Chief Complaint Chief Complaint HTN X 1 HOUR. DENIES DIZZINESS OR BLURRY VISION HPI This 68-year-old female noted that her blood pressure was severely elevated. She takes clonidine at home and states she is been compliant with her medications. She denies any chest pain fevers chills nausea vomiting or headache. Denies any focal neurological complaints. Denies any other current issues. ROS All systems reviewed and are negative except as per history of present illness. Medications Home Meds Active Scripts Docusate Sodium* (Colace*) 100 Mg Capsule, 100 MG PO TID, #30 CAP Prov:REINALDO PEARSON MD 02/17/18 Hydrocodone/Acetaminophen ([place] 5-325 Tablet) 1 Each Tablet, 1 TAB PO Q6H PRN for PAIN, #7 TAB Prov:REINALDO PEARSON MD 02/17/18 Tramadol HCl (Tramadol HCl) 50 Mg Tablet, 50 MG PO Q6, #20 TAB Prov:ROCHELLE PEREZ DO 08/08/17 Amlodipine Besylate* (Norvasc*) 10 Mg Tablet, 10 MG PO QHS, #30 TAB Prov:ROCHELLE PEREZ DO 08/08/17 Reported Medications Ibuprofen* (Ibuprofen*) 600 Mg Tablet, 600 MG PO DAILY PRN for PAIN, TAB 08/08/17 Sumatriptan Succinate* (Sumatriptan Succinate*) 50 Mg Tablet, 50 MG PO DAILY PRN for MIGRAINE HEADACHE, TAB May repeat after 2 hours if needed; MAX 200 mg/24 hours 03/03/17 Olmesartan/Hydrochlorothiazide (Benicar Hct 40-25 mg Tablet) 1 Each Tablet, 1 EACH PO DAILY, TAB 03/03/17 Isosorbide Mononitrate* (Isosorbide Mononitrate*) 60 Mg Tab.er.24h, 60 MG PO DAILY, TAB 01/06/16 Cilostazol* (Cilostazol*) 100 Mg Tablet, 100 MG PO BID, TAB 01/06/16 Carvedilol* (Carvedilol*) 6.25 Mg Tablet, 6.25 MG PO BID, #60 TAB 01/06/16 Atorvastatin* (Atorvastatin*) 40 Mg Tablet, 40 MG PO QHS, #30 TAB 01/06/16 Leflunomide* (Leflunomide*) 20 Mg Tablet, 20 MG PO DAILY, #30 TAB 01/06/16 Allergies Allergies: Coded Allergies: Penicillins (Verified Allergy, Unknown, 08/08/17) hydromorphone (Unverified Adverse Reaction, Severe, 08/08/17) Uncoded Allergies: PCN (Allergy, Severe, rash for 6 months, 04/30/13) "STREPTOMYCIN" (Allergy, Unknown, 01/06/16) PMhx/Soc Medical and Surgical Hx: pt denies Medical Hx, pt denies Surgical Hx History of Surgery: No Anesthesia Reaction: No Hx Neurological Disorder: No Hx Respiratory Disorders: No Hx Cardiac Disorders: No Hx Psychiatric Problems: No Hx Miscellaneous Medical Probl: No Hx Alcohol Use: No Hx Substance Use: No Hx Tobacco Use: No Smoking Status: Never smoker Physical Exam Vitals Vital Signs Date Temp Pulse Resp B/P (MAP) Pulse Ox O2 O2 Flow FiO2 Time Delivery Rate 01/03/19 97.6 90 14 130/67 99 Room Air 02:54 (88) 01/03/19 97.6 95 20 171/95 98 Room Air 02:09 (120) 01/03/19 97.6 99 20 209/112 98 00:50 (144) Physical Exam Const: No acute distress Head: Atraumatic Eyes: Normal Conjunctiva ENT: Normal External Ears, Nose and Mouth. Neck: Full range of motion. No meningismus. Resp: Clear to auscultation bilaterally Cardio: Regular rate and rhythm, no murmurs Abd: Soft, non tender, non distended. Normal bowel sounds Skin: No petechiae or rashes Back: No midline or flank tenderness Ext: No cyanosis, or edema Neur: Awake and alert Psych: Normal Mood and Affect Result Diagram: 01/03/1919901/03/19199 Results 24 hrs Laboratory Tests Test 01/03/19 02:00 White Blood Count 6.9 10^3/ul Red Blood Count 4.27 10^6/ul Hemoglobin 12.0 g/dl Hematocrit 39.0 % Mean Corpuscular Volume 91.3 fl Mean Corpuscular Hemoglobin 28.1 pg Mean Corpuscular Hemoglobin Concent 30.8 g/dl Red Cell Distribution Width 16.2 % Platelet Count 224 10^3/UL Mean Platelet Volume 9.4 fl Immature Granulocytes % 0.300 % Neutrophils % 55.3 % Lymphocytes % 26.2 % Monocytes % 15.3 % Eosinophils % 2.2 % Basophils % 0.7 % Nucleated Red Blood Cells % 0.0 /100WBC Immature Granulocytes # 0.020 10^3/ul Neutrophils # 3.8 10^3/ul Lymphocytes # 1.8 10^3/ul Monocytes # 1.1 10^3/ul Eosinophils # 0.2 10^3/ul Basophils # 0.1 10^3/ul Nucleated Red Blood Cells # 0.0 10^3/ul Sodium Level 140 mmol/L Potassium Level 3.3 mmol/L Chloride Level 103 mmol/L Carbon Dioxide Level 31 mmol/L Anion Gap 6 Blood Urea Nitrogen 14 mg/dl Creatinine 0.65 mg/dl Est Glomerular Filtrat Rate mL/min > 60 mL/min Glucose Level 105 mg/dl Calcium Level 9.7 mg/dl Troponin I < 0.012 ng/ml Current Medications Medications Dose Sig/[place] Start Time Status Last (Trade) Ordered Route PRN Stop Time Admin Dose Reason Admin Hydralazine 20 mg ONCE ONCE 01/03/19 DC 01/03/19 HCl IV 02:00 01:56 (Apresoline) 01/03/19 02:01 Procedures/MDM EKG: Rate/Rhythm: [Normal Sinus Rhythm] QRS, ST, T-waves: [No changes consistent w/ acute ischemia] Impression: [No evidence of ischemia or arrhythmia] Chest X-ray 1V Interpreted by me: Soft Tissue: No acute abnormalities Bones: No acute abnormalities Mediastinum/Cardiac Silhouette/Lungs: [No acute abnormalities] Medical decision making: Patient's blood pressure was elevated (>120/80) but appears stable without evidence of hypertension emergency or urgency. The patient was counseled about the risks of hypertension and urged to pursue outpatient monitoring and therapy within a week with their primary care physician. Departure Diagnosis: Primary Impression: Hypertension Hypertension type: unspecified Qualified Codes: I10 - Essential (primary) hypertension Condition: Stable ZEUS MCKEON Jan 03, 2019 03:25
[2019-01-03 03:27] VITALS: BP 111/62; PULSE 94; RESP 17
[2019-01-03] MEDS ORDERED: KETOROLAC 30 MG INJ IV STA (03:40)
== END 2019-01-03 04:22 | disposition home or self-care (01) ==
LOC: E/R 00:48
DX: I10 Essential (primary) hypertension (principal)
CPT/HCPCS: 36415; 71045; 80048; 84484; 85025; 93005; 96374; 96375; 99285; J0360; J1885

== ENCOUNTER 2019-01-05 17:06 | Observation (INO) | payer MEDICARE, OTHER ==
[~2019-01-05] VITALS: Ht 165.1 cm; Wt 79.8 kg
[~2019-01-05 17:06] MED LIST changes: +HYDR-3671 PO
[2019-01-05] MEDS ORDERED: NITROGLYCERIN 2% 1 GM OINT PKT TD STA (17:49)
[2019-01-05] MEDS ORDERED: ONDANSETRON 4 MG INJ IV STA (17:49)
[2019-01-05] MEDS ORDERED: ASPIRIN 325 MG TAB PO STA (17:49)
[2019-01-05] MEDS ORDERED: morphine 4 MG/ML VIAL IV STA (17:49)
[2019-01-05] MEDS ORDERED: NICARDipine HCL 30 MG CAPSULE PO ONE (18:00)
[2019-01-05] MEDS ORDERED: ACETAMINOPHEN 325 MG TAB PO PRN (19:30)
[2019-01-05] MEDS ORDERED: ONDANSETRON 4 MG INJ IV PRN (19:30)
--- NOTE | 2019-01-05 19:30 | ERD ---
ER Documentation Chief Complaint Chief Complaint bib self, cc; cp, sob, hypertension HPI This is a 68-year-old female who is here for chest pain. The patient says that she is having 2 or 3 weeks of chest pain but is getting worse. She said that she was seen here recently for a rheumatoid arthritis exacerbation. She says that she came in with her son today because she is having a lot of chest pressure with some radiation to her shoulder on occasion. She does get short of breath with the chest pain but no diaphoresis but she does get nausea no dizziness no near syncope. The patient has a history of hypertension which is uncontrolled today with blood pressure in 220s over 110s. She also has a rheumatoid disease of an autoimmune process/rheumatoid arthritis, no smoking no diabetes. ROS All systems reviewed and are negative except as per history of present illness. Medications Home Meds Active Scripts Hydralazine Hcl* (Hydralazine Hcl*) 25 Mg Tab, 25 MG PO Q6H PRN for ELEVATED BLOOD PRESSURE, #60 TAB Prov:ZEUS MCKEON 01/03/19 Docusate Sodium* (Colace*) 100 Mg Capsule, 100 MG PO TID, #30 CAP Prov:REINALDO PEARSON MD 02/17/18 Hydrocodone/Acetaminophen ([place] 5-325 Tablet) 1 Each Tablet, 1 TAB PO Q6H PRN for PAIN, #7 TAB Prov:REINALDO PEARSON MD 02/17/18 Tramadol HCl (Tramadol HCl) 50 Mg Tablet, 50 MG PO Q6, #20 TAB Prov:ROCHELLE PEREZ DO 08/08/17 Amlodipine Besylate* (Norvasc*) 10 Mg Tablet, 10 MG PO QHS, #30 TAB Prov:ROCHELLE PEREZ DO 08/08/17 Reported Medications Ibuprofen* (Ibuprofen*) 600 Mg Tablet, 600 MG PO DAILY PRN for PAIN, TAB 08/08/17 Sumatriptan Succinate* (Sumatriptan Succinate*) 50 Mg Tablet, 50 MG PO DAILY PRN for MIGRAINE HEADACHE, TAB May repeat after 2 hours if needed; MAX 200 mg/24 hours 03/03/17 Olmesartan/Hydrochlorothiazide (Benicar Hct 40-25 mg Tablet) 1 Each Tablet, 1 EACH PO DAILY, TAB 03/03/17 Isosorbide Mononitrate* (Isosorbide Mononitrate*) 60 Mg Tab.er.24h, 60 MG PO DAILY, TAB 01/06/16 Cilostazol* (Cilostazol*) 100 Mg Tablet, 100 MG PO BID, TAB 01/06/16 Carvedilol* (Carvedilol*) 6.25 Mg Tablet, 6.25 MG PO BID, #60 TAB 01/06/16 Atorvastatin* (Atorvastatin*) 40 Mg Tablet, 40 MG PO QHS, #30 TAB 01/06/16 Leflunomide* (Leflunomide*) 20 Mg Tablet, 20 MG PO DAILY, #30 TAB 01/06/16 Allergies Allergies: Coded Allergies: Penicillins (Verified Allergy, Unknown, 08/08/17) hydromorphone (Unverified Adverse Reaction, Severe, 08/08/17) Uncoded Allergies: PCN (Allergy, Severe, rash for 6 months, 04/30/13) "STREPTOMYCIN" (Allergy, Unknown, 01/06/16) PMhx/Soc History of Surgery: No Anesthesia Reaction: No Hx Neurological Disorder: No Hx Respiratory Disorders: No Hx Cardiac Disorders: No Hx Psychiatric Problems: No Hx Miscellaneous Medical Probl: Yes (HTN) Hx Alcohol Use: No Hx Substance Use: No Hx Tobacco Use: No Smoking Status: Never smoker FmHx Family History: No coronary disease Physical Exam Vitals Vital Signs Date Temp Pulse Resp B/P (MAP) Pulse Ox O2 O2 Flow FiO2 Time Delivery Rate 01/05/19 98.1 101 19 241/118 100 17:14 (159) Physical Exam Const: Well-developed, well-nourished Head: Atraumatic, normocephalic Eyes: Normal Conjunctiva, PERRLA, EOMI, normal sclera, no nystagmus ENT: Normal External Ears, Nose and Mouth, moist mucus membranes. Neck: Full range of motion. No meningismus, no lymphadenopathy. Resp: Clear to auscultation bilaterally, no wheezing, rhonchi, rales Cardio: Regular rate and rhythm, no murmurs, S1 S2 present Abd: Soft, non tender x 4, non distended. Normal bowel sounds, no guarding or rebound, no pulsitile abdominal masses or bruits Skin: No petechiae or rashes, no ecchymosis , no maculopapular rash Back: No midline or flank tenderness Ext: No cyanosis, or edema, FROM x 4, normal inspection, neurovascula rly intact x 4 Neur: Awake and alert, STR 5/5 x 4, sensation intact x 4, no focal findings, cerebellum intact Psych: Normal Mood and Affect Result Diagram: 01/05/19181301/05/191813 Results 24 hrs Laboratory Tests Test 01/05/19 18:14 White Blood Count 7.0 10^3/ul Red Blood Count 4.50 10^6/ul Hemoglobin 12.7 g/dl Hematocrit 39.4 % Mean Corpuscular Volume 87.6 fl Mean Corpuscular Hemoglobin 28.2 pg Mean Corpuscular Hemoglobin Concent 32.2 g/dl Red Cell Distribution Width 15.9 % Platelet Count 235 10^3/UL Mean Platelet Volume 9.8 fl Immature Granulocytes % 0.300 % Neutrophils % 55.6 % Lymphocytes % 28.1 % Monocytes % 14.2 % Eosinophils % 1.4 % Basophils % 0.4 % Nucleated Red Blood Cells % 0.0 /100WBC Immature Granulocytes # 0.020 10^3/ul Neutrophils # 3.9 10^3/ul Lymphocytes # 2.0 10^3/ul Monocytes # 1.0 10^3/ul Eosinophils # 0.1 10^3/ul Basophils # 0.0 10^3/ul Nucleated Red Blood Cells # 0.0 10^3/ul Sodium Level 134 mmol/L Potassium Level 3.6 mmol/L Chloride Level 97 mmol/L Carbon Dioxide Level 26 mmol/L Anion Gap 11 Blood Urea Nitrogen 14 mg/dl Creatinine 0.61 mg/dl Est Glomerular Filtrat Rate mL/min > 60 mL/min Glucose Level 106 mg/dl Calcium Level 9.7 mg/dl Total Bilirubin 0.3 mg/dl Direct Bilirubin 0.00 mg/dl Indirect Bilirubin 0.3 mg/dl Aspartate Amino Transf (AST/SGOT) 28 IU/L Alanine Aminotransferase (ALT/SGPT) 33 IU/L Alkaline Phosphatase 61 IU/L Troponin I < 0.012 ng/ml Total Protein 8.4 g/dl Albumin 4.7 g/dl Globulin 3.70 g/dl Albumin/Globulin Ratio 1.27 Current Medications Medications Dose Sig/[place] Start Time Status Last (Trade) Ordered Route PRN Stop Time Admin Dose Reason Admin Aspirin 325 mg ONCE STAT 01/05/19 DC 01/05/19 (Aspirin) PO 17:49 18:11 01/05/19 17:50 1 inch ONCE STAT 01/05/19 DC 01/05/19 Nitroglycerin TD 17:49 18:12 01/05/19 17:50 (Nitroglyceri n 2% Oint) Morphine 4 mg ONCE STAT 01/05/19 DC 01/05/19 Sulfate IV 17:49 18:11 (morphine) 01/05/19 17:50 Ondansetron 4 mg ONCE STAT 01/05/19 DC 01/05/19 HCl (Zofran IV 17:49 18:11 Inj) 01/05/19 17:50 Nicardipine 30 mg ONCE ONCE 01/05/19 DC 01/05/19 HCl PO 18:00 18:11 (Cardene) 01/05/19 18:01 Ondansetron 4 mg ER BRIDGE 01/05/19 HCl (Zofran PRN IV 19:30 Inj) NAUSEA/VOMITI 01/06/19 19:29 NG 650 mg ER BRIDGE 01/05/19 Acetaminophen PRN PO 19:30 (Tylenol .MILD PAIN 01/06/19 19:29 Tab) 1-3 OR TEMP Procedures/MDM MR #: [id number] DOS: 01/05/19 1749 Ordering MD: ROCHELLE PEREZ DO Location: E/R Room/Bed: PROCEDURE: XR Chest 1 View. CLINICAL INDICATION: Chest pain. TECHNIQUE: Single view of the chest was obtained. COMPARISON: DR FOX 01/03/2019 FINDINGS: Mediastinum: Heart size within normal limits. Calcified atherosclerosis in the aorta. Lungs: Elevated right hemidiaphragm. Minimal atelectasis in the left mid lung. No consolidations. No pneumothorax. Osseous structures: Intact. Osteopenia. Degenerative changes in the shoulders. Other: None. IMPRESSION: Calcified atherosclerosis in the aorta. Minimal atelectasis in the left mid lung. Mildly elevated right hemidiaphragm. RPTAT: AA .Eduardo Miranda MD, Date Time Electronically viewed and signed by .Eduardo Miranda MD, on 01/05/2019 18:27 .P/ CC: ROCHELLE PEREZ DO [id number] EKG: Rate/Rhythm: Normal Sinus Rhythm,NL intervals QRS, ST, QT: NORMAL SC, QRS, QT] Impression: NORMAL EKG Patient has very elevated BP will treat with Cardene here. Cardiac Admit MDM: Patient's symptoms are concerning for cardiac cause will require inpatient workup and continuous monitoring. Further w/u for ischemia, arrhythmia, PE or dissection will be deferred to the inpatient team. Departure Diagnosis: Primary Impression: Chest pain Chest pain type: unspecified Qualified Codes: R07.9 - Chest pain, unspecified Additional Impression: Hypertension Hypertension type: unspecified Qualified Codes: I10 - Essential (primary) hypertension Condition: Stable ROCHELLE PEREZ DO Jan 05, 2019 19:30
--- NOTE | 2019-01-05 20:24 | HP ---
Date/Time of Note Date/Time of Note DATE: 01/05/19 TIME: 20:11 Assessment/Plan VTE Prophylaxis Pharmacological prophylaxis: heparin Lines/Catheters IV Catheter Type (from Nrsg): Saline Lock Assessment/Plan Hospital Course 68-year-old female with a history of rheumatoid arthritis and hypertension who presents with severe hypertension associated with chest pain and nausea as well as bilateral lower abdominal versus hip pain Severe hypertension: -Patient now normotensive we will not treat any further as blood pressure is already come down about 100 points -Continue home meds Chest pain: -Suspect this was due to hypertension but we will rule out acute CA by cycling troponins. Her EKG is not consistent with acute ischemia - Pain is nonanginal. No need for inpatient stress testing if troponin is ruled out Bilateral abdominal versus hip pain -Patient very concerned about this. We will order a CAT scan Discharge likely tomorrow if studies negative Result Diagram: 01/05/19181301/05/194 Results 24hrs Laboratory Tests Test 01/05/19 18:14 White Blood Count 7.0 Red Blood Count 4.50 Hemoglobin 12.7 Hematocrit 39.4 Mean Corpuscular Volume 87.6 Mean Corpuscular Hemoglobin 28.2 L Mean Corpuscular Hemoglobin Concent 32.2 Red Cell Distribution Width 15.9 H Platelet Count 235 Mean Platelet Volume 9.8 Immature Granulocytes % 0.300 Neutrophils % 55.6 Lymphocytes % 28.1 Monocytes % 14.2 H Eosinophils % 1.4 Basophils % 0.4 Nucleated Red Blood Cells % 0.0 Immature Granulocytes # 0.020 Neutrophils # 3.9 Lymphocytes # 2.0 Monocytes # 1.0 H Eosinophils # 0.1 Basophils # 0.0 Nucleated Red Blood Cells # 0.0 Sodium Level 134 L Potassium Level 3.6 Chloride Level 97 Carbon Dioxide Level 26 Anion Gap 11 Blood Urea Nitrogen 14 Creatinine 0.61 Est Glomerular Filtrat Rate mL/min > 60 Glucose Level 106 Calcium Level 9.7 Total Bilirubin 0.3 Direct Bilirubin 0.00 Indirect Bilirubin 0.3 Aspartate Amino Transf (AST/SGOT) 28 Alanine Aminotransferase (ALT/SGPT) 33 Alkaline Phosphatase 61 Troponin I < 0.012 Total Protein 8.4 H Albumin 4.7 Globulin 3.70 H Albumin/Globulin Ratio 1.27 HPI/ROS Admit Date/Time Admit Date/Time Hx of Present Illness 68 yo female with h/o RA and hypertension presenting with CP, nausea and b/l lower quadrant pain Patient states symptoms started after she started on Enbrel last week. Since then she says her blood pressure has been very high. Today systolic in the 200s. She has developed chest pains and nausea associated with this. Also describes pain in b/l lower abdomen vs hips she is worried about PMH/Family/Social Past Medical History RA Hypertension Medications Current Medications Ondansetron HCl (Zofran Inj) 4 mg ER BRIDGE PRN IV NAUSEA/VOMITING; Start 01/05/19 at 19:30; Stop 01/06/19 at 19:29 Acetaminophen (Tylenol Tab) 650 mg ER BRIDGE PRN PO .MILD PAIN 1-3 OR TEMP; Start 01/05/19 at 19:30; Stop 01/06/19 at 19:29 Coded Allergies: Penicillins (Verified Allergy, Unknown, 08/08/17) hydromorphone (Unverified Adverse Reaction, Severe, 08/08/17) Uncoded Allergies: PCN (Allergy, Severe, rash for 6 months, 04/30/13) "STREPTOMYCIN" (Allergy, Unknown, 01/06/16) Past Surgical History Past Surgical Hx: no surgical history Family History Significant Family History: no pertinent family hx Social History Alcohol Use: none Smoking Status: Never smoker Drug Use: none Exam/Review of Systems Vital Signs Vitals Vital Signs Date Temp Pulse Resp B/P (MAP) Pulse Ox O2 O2 Flow FiO2 Time Delivery Rate 01/05/19 92 13 132/68 95 Room Air 19:47 (89) 01/05/19 98.1 17:14 Exam Exam Pleasant, resting in NAD AOx3 RRR Flat neck veins CTAB Appears a bit anxious Breathing comfortably [place] neck hands, mild synotivitis of MCP Ext without edema MEKHI MARLEY MD Jan 05, 2019 20:21
[2019-01-05] MEDS ORDERED: SUMATRIPTAN 50 MG TAB PO PRN (20:30)
[2019-01-05] MEDS ORDERED: NACL 0.9% 3 ML SYG IV SCH (20:30)
[2019-01-05] MEDS ORDERED: IBUPROFEN 600 MG TAB PO PRN (20:30)
[2019-01-05] MEDS ORDERED: HYDROCODONE/APAP (5/325) TAB PO PRN ×2 (20:30)
[2019-01-05 20:48] VITALS: BP 141/73; PULSE 80; RESP 18
[2019-01-05 20:55] VITALS: PULSE 100
[2019-01-05] MEDS ORDERED: ERGO500013 PO (21:02)
[2019-01-05] MEDS ORDERED: CLON-379 PO (21:02)
[2019-01-05] MEDS: DOCUSATE SODIUM 100 MG CAP PO SCH (21:46)
[2019-01-05] MEDS: ATORVASTATIN 40 MG TAB PO SCH (21:46)
[2019-01-05] MEDS: AMLODIPINE 10 MG TAB PO SCH (21:47)
[2019-01-05] MEDS: HEPARIN 5,000 UNIT/1 ML VIAL SC SCH (21:52)
[2019-01-05 22:46] VITALS: Ht 165.1 cm; Wt 79.8 kg
[2019-01-05] MEDS: traMADol 50 MG TAB PO SCH (23:24)
[2019-01-05] MEDS: CILOSTAZOL 100 MG TAB PO SCH (23:24)
[2019-01-06] VITALS (13 sets, daily range): BP systolic 107–131; BP diastolic 59–69; PULSE 71–98; RESP 17–20
[2019-01-06] MEDS: traMADol 50 MG TAB PO SCH ×4 (06:07→23:20)
[2019-01-06] MEDS: CILOSTAZOL 100 MG TAB PO SCH ×2 (08:32→21:14)
[2019-01-06] MEDS: ISOSORBIDE MONONITRATE(SR)60 MG TAB PO SCH (08:33)
[2019-01-06] MEDS: DOCUSATE SODIUM 100 MG CAP PO SCH ×3 (08:33→21:15)
[2019-01-06] MEDS: HEPARIN 5,000 UNIT/1 ML VIAL SC SCH ×2 (08:40→21:20)
[2019-01-06] MEDS: LEFLUNOMIDE 20 MG TAB PO SCH (12:10)
--- NOTE | 2019-01-06 13:42 | CONS ---
Assessment/Plan Assessment/Plan Hospital Course (Demo Recall) Hypertension urgency, resolved Abdominal pain Hypertension -Patient with episodes of recurrent abdominal pain which usually leads to uncontrolled hypertension and then chest pain. Once blood pressure is controlled, she denies any chest discomfort. -Serial cardiac enzymes have remained negative, ECG with no significant ischemic abnormalities. Chest pain likely secondary to hypertension urgency. -Patient undergoing GI evaluation for abdominal pain. -Patient is currently on oral antihypertensives and blood pressure is well controlled in house. We will continue current regimen. Will check echocardiogram to evaluate LV function. Consultation Date/Type/Reason Admit Date/Time Type of Consult Cardiology Reason for Consultation Hypertension and chest pain Date/Time of Note DATE: 01/06/19 TIME: 13:38 Hx of Present Illness This is a 68-year-old female with past medical history of hypertension, arthritis presents emergency room with recurrent episodes of abdominal pain, chest pain and hypertension. Patient was started on a new injectable medication for arthritis. Since then, she has noticed that her blood pressure has been elevated. Over the past 4 days, patient with severe lower abdominal pain. When these episodes happen, patient with hypertension and chest pain. Once her blood pressure is controlled, her as well as her pain, her chest pain resolves. She denies exertional chest discomfort on a regular basis or dyspnea. This happened recurrently over the past few days and patient was admitted for further evaluation and care. She denies any current chest pain, shortness of breath, palpitations. 12 point review of systems was performed with all pertinent positives and negatives mentioned above and all else is negative Past Medical History Medical History: hypertension Home Meds Active Scripts Hydralazine Hcl* (Hydralazine Hcl*) 25 Mg Tab, 25 MG PO Q6H PRN for ELEVATED BLOOD PRESSURE, #60 TAB Prov:ZEUS MCKEON 01/03/19 Docusate Sodium* (Colace*) 100 Mg Capsule, 100 MG PO TID, #30 CAP Prov:REINALDO PEARSON MD 02/17/18 Hydrocodone/Acetaminophen ([place] 5-325 Tablet) 1 Each Tablet, 1 TAB PO Q6H PRN for PAIN, #7 TAB Prov:REINALDO PEARSON MD 02/17/18 Tramadol HCl (Tramadol HCl) 50 Mg Tablet, 50 MG PO Q6, #20 TAB Prov:ROCHELLE PEREZ DO 08/08/17 Amlodipine Besylate* (Norvasc*) 10 Mg Tablet, 10 MG PO QHS, #30 TAB Prov:ROCHELLE PEREZ. DO 08/08/17 Reported Medications Ergocalciferol (Vitamin D2) (VITAMIN D2) 50,000 Unit Capsule, 18727 UNIT PO QTHU, CAP 01/05/19 Clonidine Hcl* (Clonidine Hcl*) 0.1 Mg Tab, 0.1 MG PO Q4H, TAB 01/05/19 Ibuprofen* (Ibuprofen*) 600 Mg Tablet, 600 MG PO DAILY PRN for PAIN, TAB 08/08/17 Sumatriptan Succinate* (Sumatriptan Succinate*) 50 Mg Tablet, 50 MG PO DAILY PRN for MIGRAINE HEADACHE, TAB May repeat after 2 hours if needed; MAX 200 mg/24 hours 03/03/17 Olmesartan/Hydrochlorothiazide (Benicar Hct 40-25 mg Tablet) 1 Each Tablet, 1 EACH PO DAILY, TAB 03/03/17 Isosorbide Mononitrate* (Isosorbide Mononitrate*) 60 Mg Tab.er.24h, 60 MG PO DAILY, TAB 01/06/16 Cilostazol* (Cilostazol*) 100 Mg Tablet, 100 MG PO BID, TAB 01/06/16 Carvedilol* (Carvedilol*) 6.25 Mg Tablet, 6.25 MG PO BID, #60 TAB 01/06/16 Atorvastatin* (Atorvastatin*) 40 Mg Tablet, 40 MG PO QHS, #30 TAB 01/06/16 Leflunomide* (Leflunomide*) 20 Mg Tablet, 20 MG PO DAILY, #30 TAB 01/06/16 Medications Current Medications Ondansetron HCl (Zofran Inj) 4 mg ER BRIDGE PRN IV NAUSEA/VOMITING; Start 01/05/19 at 19:30; Stop 01/06/19 at 19:29 Acetaminophen (Tylenol Tab) 650 mg ER BRIDGE PRN PO .MILD PAIN 1-3 OR TEMP; Start 01/05/19 at 19:30; Stop 01/06/19 at 19:29 Amlodipine Besylate (Norvasc) 10 mg QHS PO Last administered on 01/05/19at 21:47; Admin Dose 10 MG; Start 01/05/19 at 21:00 Atorvastatin Calcium (Lipitor) 40 mg QHS PO Last administered on 01/05/19 21:46; Admin Dose 40 MG; Start 01/05/19 at 21:00 Carvedilol (Coreg) 6.25 mg BID PO Last administered on 01/06/19 08:32; Admin Dose 6.25 MG; Start 01/05/19 at 21:00 Cilostazol (Pletal) 100 mg BID PO Last administered on 01/06/19 08:32; Admin Dose 100 MG; Start 01/05/19 at 21:00 Docusate Sodium (Colace) 100 mg TID PO Last administered on 01/06/19 13:32; Admin Dose 100 MG; Start 01/05/19 at 21:00 Hydralazine HCl (Apresoline) 25 mg Q6H PRN PO ELEVATED BLOOD PRESSURE; Start 01/05/19 at 20:30 Ibuprofen (Motrin) 600 mg DAILY PRN PO PAIN; Start 01/05/19 at 20:30 Isosorbide Mononitrate (Imdur) 60 mg DAILY PO Last administered on 01/06/19 08:33; Admin Dose 60 MG; Start 01/06/19 at 09:00 Leflunomide (Arava) 20 mg DAILY PO Last administered on 01/06/19 12:10; Admin Dose 20 MG; Start 01/06/19 at 09:00 Sumatriptan Succinate (Imitrex) 50 mg DAILY PRN PO MIGRAINE HEADACHE; Start 01/05/19 at 20:30 Tramadol HCl (Ultram) 50 mg Q6 PO Last administered on 01/06/19 13:32; Admin Dose 50 MG; Start 01/06/19 at 00:00 IV Flush (NS 3 ml) 3 ml PER PROTOCOL IV ; Start 01/05/19 at 20:30 Acetaminophen/ Hydrocodone Bitart ([place] (5/325)) 1 tab Q6H PRN PO .MOD PAIN 4- 6; Start 01/05/19 at 20:30 Heparin Sodium (Porcine) (Heparin (5000 Units/1ml)) 5,000 unit Q12 SC Last ad ministered on 01/06/19 08:40; Admin Dose 5,000 UNIT; Start 01/05/19 at 21:00 Allergies: Coded Allergies: Penicillins (Unverified Allergy, Unknown, 01/05/19) hydromorphone (Unverified Adverse Reaction, Severe, 01/05/19) streptomycin (Unverified Adverse Reaction, Unknown, 01/05/19) Uncoded Allergies: PCN (Allergy, Severe, rash for 6 months, 04/30/13) "STREPTOMYCIN" (Adverse Reaction, Unknown, 01/05/19) Past Surgical History Past Surgical Hx: no surgical history Family History Significant Family History: no pertinent family hx Social History Alcohol Use: none Smoking Status: Never smoker Drug Use: none Exam/Review of Systems Vital Signs Vitals Vital Signs Date Temp Pulse Resp B/P (MAP) Pulse Ox O2 O2 Flow FiO2 Time Delivery Rate 01/06/19 94 12:13 01/06/19 97.9 18 123/60 94 Room Air 11:03 (81) Intake and Output 01/05/19 01/05/19 01/06/19 1414:59 22:59 06:59 IntakeIntake Total 60 ml BalanceBalance 60 ml Exam Constitutional: alert, oriented, well developed (No apparent distress, multiple family members at bedside) Head: normocephalic Respiratory: clear to auscultation, normal air movement Cardiovascular: regular rate and rhythm (S1-S2 heard) Gastrointestinal: soft, bowel sounds Extremities: other (No significant edema) Labs Result Diagram: 01/06/19 0500 01/06/19 0500 Results 24hrs Laboratory Tests Test 01/05/19 18:14 01/05/19 23:49 01/06/19 05:00 White Blood Count 7.0 5.2 # Red Blood Count 4.50 4.07 L Hemoglobin 12.7 11.5 L Hematocrit 39.4 36.1 L Mean Corpuscular Volume 87.6 88.7 Mean Corpuscular Hemoglobin 28.2 L 28.3 L Mean Corpuscular Hemoglobin Concent 32.2 31.9 L Red Cell Distribution Width 15.9 H 16.1 H Platelet Count 235 219 Mean Platelet Volume 9.8 9.7 Immature Granulocytes % 0.300 0.200 Neutrophils % 55.6 43.8 Lymphocytes % 28.1 35.5 Monocytes % 14.2 H 16.4 H Eosinophils % 1.4 3.3 Basophils % 0.4 0.8 Nucleated Red Blood Cells % 0.0 0.0 Immature Granulocytes # 0.020 0.010 Neutrophils # 3.9 2.3 Lymphocytes # 2.0 1.8 Monocytes # 1.0 H 0.9 Eosinophils # 0.1 0.2 Basophils # 0.0 0.0 Nucleated Red Blood Cells # 0.0 0.0 Sodium Level 134 L 138 Potassium Level 3.6 3.5 Chloride Level 97 101 Carbon Dioxide Level 26 30 Anion Gap 11 7 Blood Urea Nitrogen 14 14 Creatinine 0.61 0.68 Est Glomerular Filtrat Rate mL/min > 60 > 60 Glucose Level 106 99 Calcium Level 9.7 9.3 Total Bilirubin 0.3 0.2 Direct Bilirubin 0.00 0.00 Indirect Bilirubin 0.3 0.2 Aspartate Amino Transf (AST/SGOT) 28 22 Alanine Aminotransferase (ALT/SGPT) 33 25 Alkaline Phosphatase 61 51 Troponin I < 0.012 < 0.012 < 0.012 Total Protein 8.4 H 6.3 # Albumin 4.7 3.6 # Globulin 3.70 H 2.70 Albumin/Globulin Ratio 1.27 1.33 Hemoglobin A1c 5.7 Imaging Imaging ECG sinus rhythm, normal QRS duration, no significant ischemic STT wave abnormalities Medications Medications Current Medications Ondansetron HCl (Zofran Inj) 4 mg ER BRIDGE PRN IV NAUSEA/VOMITING; Start 01/05/19 at 19:30; Stop 01/06/19 at 19:29 Acetaminophen (Tylenol Tab) 650 mg ER BRIDGE PRN PO .MILD PAIN 1-3 OR TEMP; Start 01/05/19 at 19:30; Stop 01/06/19 at 19:29 Amlodipine Besylate (Norvasc) 10 mg QHS PO Last administered on 01/05/19at 21:47; Admin Dose 10 MG; Start 01/05/19 at 21:00 Atorvastatin Calcium (Lipitor) 40 mg QHS PO Last administered on 01/05/19at 21:46; Admin Dose 40 MG; Start 01/05/19 at 21:00 Carvedilol (Coreg) 6.25 mg BID PO Last administered on 01/06/19at 08:32; Admin Dose 6.25 MG; Start 01/05/19 at 21:00 Cilostazol (Pletal) 100 mg BID PO Last administered on 01/06/19at 08:32; Admin Dose 100 MG; Start 01/05/19 at 21:00 Docusate Sodium (Colace) 100 mg TID PO Last administered on 01/06/19 13:32; Admin Dose 100 MG; Start 01/05/19 at 21:00 Hydralazine HCl (Apresoline) 25 mg Q6H PRN PO ELEVATED BLOOD PRESSURE; Start 01/05/19 at 20:30 Ibuprofen (Motrin) 600 mg DAILY PRN PO PAIN; Start 01/05/19 at 20:30 Isosorbide Mononitrate (Imdur) 60 mg DAILY PO Last administered on 01/06/19at 08:33; Admin Dose 60 MG; Start 01/06/19 at 09:00 Leflunomide (Arava) 20 mg DAILY PO Last administered on 01/06/19at 12:10; Admin Dose 20 MG; Start 01/06/19 at 09:00 Sumatriptan Succinate (Imitrex) 50 mg DAILY PRN PO MIGRAINE HEADACHE; Start 01/05/19 at 20:30 Tramadol HCl (Ultram) 50 mg Q6 PO Last administered on 01/06/19at 13:32; Admin Dose 50 MG; Start 01/06/19 at 00:00 IV Flush (NS 3 ml) 3 ml PER PROTOCOL IV ; Start 01/05/19 at 20:30 Acetaminophen/ Hydrocodone Bitart ([place] (5/325)) 1 tab Q6H PRN PO .MOD PAIN 4- 6; Start 01/05/19 at 20:30 Heparin Sodium (Porcine) (Heparin (5000 Units/1ml)) 5,000 unit Q12 SC Last administered on 01/06/19at 08:40; Admin Dose 5,000 UNIT; Start 01/05/19 at 21:00 Rich Bryant DO Jan 06, 2019 13:42
--- NOTE | 2019-01-06 14:07 | CONS ---
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 HTN- now controlled CP- Trop x3- neg Mildly elevated right hemidiaphragm. Hx of RA Plan: clear liquid diet today NPO after 01/07/19 at 0800 Colonoscopy tomorrow Endoscopy - risks/benefits/alternatives/indications of procedure and sedation/anesthesia discussed with patient who states understanding and gives informed consent to proceed. Will check ESR/CRP Pending results of Colonoscopy- pt may need DT enterography Patient seen in collaboration with Dr. Ibanez CC: PORTIA IBANEZ ; Consultation Date/Type/Reason Admit Date/Time Date of Consultation: Jan 06, 2019 Type of Consult GI Reason for Consultation Abdominal pain/ Abnormal imaging Date/Time of Note DATE: 01/06/19 TIME: 13:26 Hx of Present Illness This is a 66-year-old female with history of hypertension, hyperlipidemia, rheumatoid arthritis, chronic pain, migraine headaches, who presented to the ED with progressive CP radiation to the shoulder. With work-up Trop x3 have been neg according to notes no significant EKG's changed were noted. Additionally pt c/o abd pain vs hip pain a CT abd/pelvis was ordered without contrast showing subtle hazy induration/stranding involving the central upper mesentery in the midline caudal to the pancreas consistent with inflammatory changes and mesenteric panniculitis. Negative for free air abscess. No calcified urinary calculi or obstructive uropathy. Mild diverticular changes of the sigmoid colon without CT evidence of diverticulitis. Unremarkable appendix. GI has been consulted for further investigation regarding possible mesenteric panniculitis and lower abdominal pain. At time evaluation patient denies current nausea she states abdominal pain initially started last Thursday and became progressively worse in combination with other symptoms which brought her to the hospital. She denies previous symptoms she denies hematochezia, melena, emesis, hematemesis. She has never had a colonoscopy. We will plan to order CRP, ESR to assess inflammatory process however patient with history of rheumatoid arthritis may be elevated secondary to known diagnosis. Additionally patient has never had a colonoscopy. We will proceed with colonoscopy tomorrow, reviewed risk/benefits/alternatives patient and daughter both verbalized understanding agreeable to procedure. Based on those results patient may require CT enterography as well. Further recommendations based on clinical course Review of Systems: A 12 system, review was conducted and is negative except as noted in the HPI or here. Past Medical History Home Meds Active Scripts Hydralazine Hcl* (Hydralazine Hcl*) 25 Mg Tab, 25 MG PO Q6H PRN for ELEVATED BLOOD PRESSURE, #60 TAB Prov:ZEUS MCKEONArlet 01/03/19 Docusate Sodium* (Colace*) 100 Mg Capsule, 100 MG PO TID, #30 CAP Prov:REINALDO PEARSON MD 02/17/18 Hydrocodone/Acetaminophen ([place] 5-325 Tablet) 1 Each Tablet, 1 TAB PO Q6H PRN for PAIN, #7 TAB Prov:REINALDO PEARSON MD 02/17/18 Tramadol HCl (Tramadol HCl) 50 Mg Tablet, 50 MG PO Q6, #20 TAB Prov:ROCHELLE PEREZ DO 08/08/17 Amlodipine Besylate* (Norvasc*) 10 Mg Tablet, 10 MG PO QHS, #30 TAB Prov:ROCHELLE PEREZ DO 08/08/17 Reported Medications Ergocalciferol (Vitamin D2) (VITAMIN D2) 50,000 Unit Capsule, 24202 UNIT PO QTHU, CAP 01/05/19 Clonidine Hcl* (Clonidine Hcl*) 0.1 Mg Tab, 0.1 MG PO Q4H, TAB 01/05/19 Ibuprofen* (Ibuprofen*) 600 Mg Tablet, 600 MG PO DAILY PRN for PAIN, TAB 08/08/17 Sumatriptan Succinate* (Sumatriptan Succinate*) 50 Mg Tablet, 50 MG PO DAILY PRN for MIGRAINE HEADACHE, TAB May repeat after 2 hours if needed; MAX 200 mg/24 hours 03/03/17 Olmesartan/Hydrochlorothiazide (Benicar Hct 40-25 mg Tablet) 1 Each Tablet, 1 EACH PO DAILY, TAB 03/03/17 Isosorbide Mononitrate* (Isosorbide Mononitrate*) 60 Mg Tab.er.24h, 60 MG PO DAILY, TAB 01/06/16 Cilostazol* (Cilostazol*) 100 Mg Tablet, 100 MG PO BID, TAB 01/06/16 Carvedilol* (Carvedilol*) 6.25 Mg Tablet, 6.25 MG PO BID, #60 TAB 01/06/16 Atorvastatin* (Atorvastatin*) 40 Mg Tablet, 40 MG PO QHS, #30 TAB 01/06/16 Leflunomide* (Leflunomide*) 20 Mg Tablet, 20 MG PO DAILY, #30 TAB 01/06/16 Medications Current Medications Ondansetron HCl (Zofran Inj) 4 mg ER BRIDGE PRN IV NAUSEA/VOMITING; Start 01/05/19 at 19:30; Stop 01/06/19 at 19:29 Acetaminophen (Tylenol Tab) 650 mg ER BRIDGE PRN PO .MILD PAIN 1-3 OR TEMP; Start 01/05/19 at 19:30; Stop 01/06/19 at 19:29 Amlodipine Besylate (Norvasc) 10 mg QHS PO Last administered on 01/05/19at 21:47; Admin Dose 10 MG; Start 01/05/19 at 21:00 Atorvastatin Calcium (Lipitor) 40 mg QHS PO Last administered on 01/05/19at 21 :46; Admin Dose 40 MG; Start 01/05/19 at 21:00 Carvedilol (Coreg) 6.25 mg BID PO Last administered on 01/06/19at 08:32; Admin Dose 6.25 MG; Start 01/05/19 at 21:00 Cilostazol (Pletal) 100 mg BID PO Last administered on 01/06/19at 08:32; Admin Dose 100 MG; Start 01/05/19 at 21:00 Docusate Sodium (Colace) 100 mg TID PO Last administered on 01/06/19at 08:33; Admin Dose 100 MG; Start 01/05/19 at 21:00 Hydralazine HCl (Apresoline) 25 mg Q6H PRN PO ELEVATED BLOOD PRESSURE; Start 01/05/19 at 20:30 Ibuprofen (Motrin) 600 mg DAILY PRN PO PAIN; Start 01/05/19 at 20:30 Isosorbide Mononitrate (Imdur) 60 mg DAILY PO Last administered on 01/06/19at 08:33; Admin Dose 60 MG; Start 01/06/19 at 09:00 Leflunomide (Arava) 20 mg DAILY PO Last administered on 01/06/19at 12:10; Admin Dose 20 MG; Start 01/06/19 at 09:00 Sumatriptan Succinate (Imitrex) 50 mg DAILY PRN PO MIGRAINE HEADACHE; Start 01/05/19 at 20:30 Tramadol HCl (Ultram) 50 mg Q6 PO Last administered on 01/06/19at 06:07; Admin Dose 50 MG; Start 01/06/19 at 00:00 IV Flush (NS 3 ml) 3 ml PER PROTOCOL IV ; Start 01/05/19 at 20:30 Acetaminophen/ Hydrocodone Bitart ([place] (5/325)) 1 tab Q6H PRN PO .MOD PAIN 4- 6; Start 01/05/19 at 20:30 Heparin Sodium (Porcine) (Heparin (5000 Units/1ml)) 5,000 unit Q12 SC Last administered on 01/06/19at 08:40; Admin Dose 5,000 UNIT; Start 01/05/19 at 21:00 Allergies: Coded Allergies: Penicillins (Unverified Allergy, Unknown, 01/05/19) hydromorphone (Unverified Adverse Reaction, Severe, 01/05/19) streptomycin (Unverified Adverse Reaction, Unknown, 01/05/19) Uncoded Allergies: PCN (Allergy, Severe, rash for 6 months, 04/30/13) "STREPTOMYCIN" (Adverse Reaction, Unknown, 01/05/19) Past Surgical History Past Surgical Hx: no surgical history Social History Alcohol Use: none Smoking Status: Never smoker Drug Use: none Exam/Review of Systems Exam Vitals Vital Signs Date Temp Pulse Resp B/P (MAP) Pulse Ox O2 O2 Flow FiO2 Time Delivery Rate 01/06/19 94 12:13 01/06/19 97.9 18 123/60 94 Room Air 11:03 (81) Intake and Output 01/05/19 01/05/19 01/06/19 1515:00 23:00 07:00 IntakeIntake Total 60 ml BalanceBalance 60 ml Constitutional: alert, oriented Psych: no complaints, nl mood/affect Head: normocephalic Eyes: nl conjunctiva ENMT: nl external ears & nose Neck: supple Respiratory: clear to auscultation Cardiovascular: regular rate and rhythm Gastrointestinal: soft, bowel sounds, tender (RLQ, LLQ); No ascites Results Result Diagram: 01/06/19 0500 01/06/19 0500 Results 24hrs Laboratory Tests Test 01/05/19 18:14 01/05/19 23:49 01/06/19 05:00 White Blood Count 7.0 5.2 # Red Blood Count 4.50 4.07 L Hemoglobin 12.7 11.5 L Hematocrit 39.4 36.1 L Mean Corpuscular Volume 87.6 88.7 Mean Corpuscular Hemoglobin 28.2 L 28.3 L Mean Corpuscular Hemoglobin Concent 32.2 31.9 L Red Cell Distribution Width 15.9 H 16.1 H Platelet Count 235 219 Mean Platelet Volume 9.8 9.7 Immature Granulocytes % 0.300 0.200 Neutrophils % 55.6 43.8 Lymphocytes % 28.1 35.5 Monocytes % 14.2 H 16.4 H Eosinophils % 1.4 3.3 Basophils % 0.4 0.8 Nucleated Red Blood Cells % 0.0 0.0 Immature Granulocytes # 0.020 0.010 Neutrophils # 3.9 2.3 Lymphocytes # 2.0 1.8 Monocytes # 1.0 H 0.9 Eosinophils # 0.1 0.2 Basophils # 0.0 0.0 Nucleated Red Blood Cells # 0.0 0.0 Sodium Level 134 L 138 Potassium Level 3.6 3.5 Chloride Level 97 101 Carbon Dioxide Level 26 30 Anion Gap 11 7 Blood Urea Nitrogen 14 14 Creatinine 0.61 0.68 Est Glomerular Filtrat Rate mL/min > 60 > 60 Glucose Level 106 99 Calcium Level 9.7 9.3 Total Bilirubin 0.3 0.2 Direct Bilirubin 0.00 0.00 Indirect Bilirubin 0.3 0.2 Aspartate Amino Transf (AST/SGOT) 28 22 Alanine Aminotransferase (ALT/SGPT) 33 25 Alkaline Phosphatase 61 51 Troponin I < 0.012 < 0.012 < 0.012 Total Protein 8.4 H 6.3 # Albumin 4.7 3.6 # Globulin 3.70 H 2.70 Albumin/Globulin Ratio 1.27 1.33 Hemoglobin A1c 5.7 Medications Medication Current Medications Ondansetron HCl (Zofran Inj) 4 mg ER BRIDGE PRN IV NAUSEA/VOMITING; Start 01/05/19 at 19:30; Stop 01/06/19 at 19:29 Acetaminophen (Tylenol Tab) 650 mg ER BRIDGE PRN PO .MILD PAIN 1-3 OR TEMP; Start 01/05/19 at 19:30; Stop 01/06/19 at 19:29 Amlodipine Besylate (Norvasc) 10 mg QHS PO Last administered on 01/05/19at 21:47; Admin Dose 10 MG; Start 01/05/19 at 21:00 Atorvastatin Calcium (Lipitor) 40 mg QHS PO Last administered on 01/05/19at 21:46; Admin Dose 40 MG; Start 01/05/19 at 21:00 Carvedilol (Coreg) 6.25 mg BID PO Last administered on 01/06/19at 08:32; Admin Dose 6.25 MG; Start 01/05/19 at 21:00 Cilostazol (Pletal) 100 mg BID PO Last administered on 01/06/19 08:32; Admin Dose 100 MG; Start 01/05/19 at 21:00 Docusate Sodium (Colace) 100 mg TID PO Last administered on 01/06/19at 08:33; Admin Dose 100 MG; Start 01/05/19 at 21:00 Hydralazine HCl (Apresoline) 25 mg Q6H PRN PO ELEVATED BLOOD PRESSURE; Start 01/05/19 at 20:30 Ibuprofen (Motrin) 600 mg DAILY PRN PO PAIN; Start 01/05/19 at 20:30 Isosorbide Mononitrate (Imdur) 60 mg DAILY PO Last administered on 01/06/19at 08:33; Admin Dose 60 MG; Start 01/06/19 at 09:00 Leflunomide (Arava) 20 mg DAILY PO Last administered on 01/06/19at 12:10; Admin Dose 20 MG; Start 01/06/19 at 09:00 Sumatriptan Succinate (Imitrex) 50 mg DAILY PRN PO MIGRAINE HEADACHE; Start 01/05/19 at 20:30 Tramadol HCl (Ultram) 50 mg Q6 PO Last administered on 01/06/19at 06:07; Admin Dose 50 MG; Start 01/06/19 at 00:00 IV Flush (NS 3 ml) 3 ml PER PROTOCOL IV ; Start 01/05/19 at 20:30 Acetaminophen/ Hydrocodone Bitart ([place] (5/325)) 1 tab Q6H PRN PO .MOD PAIN 4- 6; Start 01/05/19 at 20:30 Heparin Sodium (Porcine) (Heparin (5000 Units/1ml)) 5,000 unit Q12 SC Last a dministered on 01/06/19at 08:40; Admin Dose 5,000 UNIT; Start 01/05/19 at 21:00 ELVER LEVY Jan 06, 2019 13:37
[2019-01-06] MEDS ORDERED: BISACODYL (EC) 5 MG TAB PO ONE (14:30)
--- NOTE | 2019-01-06 15:55 | RADRPT ---
Echocardiogram Report Patient Name: SAURABH NAZARIOPatient ID: [id number] : [id number] (68y 9m)Study Date: 01/06/2019 2:00:58 PM Gender: FAccession #: [id number] Tech: SN Location: Ref.Physician: RICH BRYANT Height(Cm): BSA: Weight(Kg): Quality: AdequateAccount #: Procedures: Echocardiographic Report: Transthoracic echocardiogram with complete 2D, M-Mode, and doppler examination. Indications: Hypertension, CP. Measurements: 2D/M Mode Doppler Measurement Value Normal Range Measurement Value Normal Range LVIDd 2D 3.1 [ 3.8 - 5.2 ] cm AV Peak Addison 1.9 [ 100.0 - 170.0 ] cm/sec LVIDs 2D 2.1 [ 2.2 - 3.5 ] cm AV Peak PG 15.0 [ 2.0 - 9.0 ] mmHg LVPWd 2D 1.5 [ 0.6 - 0.9 ] cm LVOT Peak Addison 1.5 [ 70.0 - 110.0 ] cm/sec IVSd 2D 1.5 [ 0.6 - 0.9 ] cm LVOT Peak PG 9.0 [ 2.0 - 6.0 ] mmHg AoR Diam 2D 2.5 [ 2.3 - 3.1 ] cm MV E Peak Addison 0.8 [ 60.0 - 130.0 ] cm/sec EDV 2D 38.2 [ 46.0 - 106.0 ] ml MV A Peak Addison 1.3 [ 100.0 - 120.0 ] cm/sec ESV 2D 14.4 [ 14.0 - 42.0 ] ml MV E/A 0.6 [ 0.8 - 1.5 ] ratio EF 2D 62.3 [ 54.0 - 74.0 ] percent MV Decel Time 187 [ 104 - 258 ] msec LA Dimen 2D 3.4 [ 2.7 - 3.8 ] cm Lat E` Addison 0.1 [ 10.0 - 15.0 ] cm/sec Lateral E/E` 6.1 [ 1.0 - 2.0 ] ratio Med E` Addison 0.1 cm/sec MV E/A 0.6 [ 0.8 - 1.5 ] ratio TR Peak Addison 3.0 [ 100.0 - 280.0 ] cm/sec TR Peak PG 35.0 mmHg RVSP 38.0 [ 10.0 - 36.0 ] mmHg Findings: Left Ventricle: Normal left ventricular systolic function. Normal left ventricular cavity size. Moderate concentric left ventricular hypertrophy. Ejection fraction is visually estimated at 65 %. Tissue Doppler/Mitral Doppler indices are consistent with impaired relaxation (Stage I diastolic dysfunction). Right Ventricle: Normal right ventricular size. Normal right ventricular systolic function. Left Atrium: The left atrium is normal in size. Right Atrium: The right atrium is normal in size. Mitral Valve: Mild mitral leaflet calcification. Mild mitral annular calcification. Trace mitral regurgitation. Aortic Valve: No significant aortic stenosis or insufficiency. Aortic cusps appear mildly calcified. Tricuspid Valve: Normal appearance and function of the tricuspid valve with trace physiologic regurgitation. Estimated peak PA systolic pressure 38 mmHg. Pulmonic Valve: Pulmonic valve not well visualized. Pericardium: Normal pericardium with no significant pericardial effusion. Aorta: Normal aortic root. IVC: Normal size and normal respiratory collapse consistent with normal right atrial pressure. Conclusions: Normal left ventricular systolic function. Normal left ventricular cavity size. Moderate concentric left ventricular hypertrophy. Ejection fraction is visually estimated at 65 %. Tissue Doppler/Mitral Doppler indices are consistent with impaired relaxation (Stage I diastolic dysfunction). Normal right ventricular size. Normal right ventricular systolic function. The left atrium is normal in size. The right atrium is normal in size. No significant valvular stenosis or regurgitation seen. Normal pericardium with no significant pericardial effusion. Electronically Signed By: Rich Bryant 2019-01-06 15:55:26 PST
--- NOTE | 2019-01-06 16:14 | PN ---
Date/Time of Note Date/Time of Note DATE: 01/06/19 TIME: 16:11 Assessment/Plan VTE Prophylaxis Risk score (from Ns)>0 risk: 2 SCD applied (from Ns): Yes Pharmacological prophylaxis: heparin Lines/Catheters IV Catheter Type [facility]from [facility] Saline Lock Assessment/Plan Hospital Course SUBJECTIVE: Denies any chest pain. Continues to have abdominal pain. OBJECTIVE: Physical Exam General: Adequately build 68 year-old female lying in bed in no apparent distress. HEENT: Normocephalic, atraumatic. Eyes: Anicteric sclerae, conjunctivae clear. ENT: Nasal septum midline, oral mucosa moist. Neck supple. Respiratory: Bilaterally clear breath sounds. No use of accessory muscles of respiration. No adventitious breath sounds. Cardiovascular: S1, S2 heard. Regular rate and rhythm. Abdomen: Soft, nontender, and nondistended. Bowel sounds positive in all 4 quadrants. Genitourinary: Deferred. Extremities: No cyanosis, no clubbing, no edema. Peripheral pulses palpable. Neurologic: Cranial nerves II through XII grossly intact. The patient is awake, alert, and oriented. Skin: Normal skin turgor. No skin rashes. Labs & Vitals per chart ASSESSMENT & PLAN 68-year-old female with comorbidities including hypertension, dyslipidemia, migraine headaches, and arthritis who came to the emergency room with a chief complaint of nausea, chest pain, and bilateral lower quadrant pain. The patient was also noticed to have a blood pressure of 241/118 in the emergency room. The patient was recently started on Enbrel for her underlying rheumatoid arthritis. Since then, the patient was having problems with abdominal pain and hypertension. The patient was seen in the emergency room on January 03, 2019 with similar complaints and the patient was discharged home. 1. Hypertensive urgency. -The patient's blood pressure currently stable. -Continue amlodipine and Coreg. 2. Chest pain -Most probably secondary to underlying hypertension. -Serial troponins negative. -2D echocardiogram showing preserved left ventricular ejection fraction. -Cardiology following. 3. Abdominal pain. -CT suggesting subtle hazy induration/stranding involving the central upper mesentery in the midline caudal to the pancreas consistent with inflammatory changes and mesenteric panniculitis. -Gastroenterology consult has been obtained. -Patient scheduled for a colonoscopy tomorrow. 4. Dyslipidemia. -Continue statins. 5. Rheumatoid arthritis -On leflunomide. 6. History of migraine headaches -Continue PRN sumatriptan 7. Fluids, electrolytes, and nutrition. -Low-cholesterol diet. 8. DVT prophylaxis. -Subcutaneous heparin. 9. Plan. -Continue blood pressure control. -Cardiology consult has been obtained -Gastroenterology consult has been obtained. -Plan of care was explained to the patient's family, who was at the bedside. -The patient's care will be taken over by because of insurance reasons from 01/07/2019. -Telephone report given to Dr. Maciel on 01/06/2019. The patient was seen in collaboration with Dr. Lopez. Result Diagram: 01/06/19 0500 01/06/19 0500 Results 24hrs Laboratory Tests Test 01/05/19 18:14 01/05/19 23:49 01/06/19 05:00 White Blood Count 7.0 5.2 # Red Blood Count 4.50 4.07 L Hemoglobin 12.7 11.5 L Hematocrit 39.4 36.1 L Mean Corpuscular Volume 87.6 88.7 Mean Corpuscular Hemoglobin 28.2 L 28.3 L Mean Corpuscular Hemoglobin Concent 32.2 31.9 L Red Cell Distribution Width 15.9 H 16.1 H Platelet Count 235 219 Mean Platelet Volume 9.8 9.7 Immature Granulocytes % 0.300 0.200 Neutrophils % 55.6 43.8 Lymphocytes % 28.1 35.5 Monocytes % 14.2 H 16.4 H Eosinophils % 1.4 3.3 Basophils % 0.4 0.8 Nucleated Red Blood Cells % 0.0 0.0 Immature Granulocytes # 0.020 0.010 Neutrophils # 3.9 2.3 Lymphocytes # 2.0 1.8 Monocytes # 1.0 H 0.9 Eosinophils # 0.1 0.2 Basophils # 0.0 0.0 Nucleated Red Blood Cells # 0.0 0.0 Sodium Level 134 L 138 Potassium Level 3.6 3.5 Chloride Level 97 101 Carbon Dioxide Level 26 30 Anion Gap 11 7 Blood Urea Nitrogen 14 14 Creatinine 0.61 0.68 Est Glomerular Filtrat Rate mL/min > 60 > 60 Glucose Level 106 99 Calcium Level 9.7 9.3 Total Bilirubin 0.3 0.2 Direct Bilirubin 0.00 0.00 Indirect Bilirubin 0.3 0.2 Aspartate Amino Transf (AST/SGOT) 28 22 Alanine Aminotransferase (ALT/SGPT) 33 25 Alkaline Phosphatase 61 51 Troponin I < 0.012 < 0.012 < 0.012 Total Protein 8.4 H 6.3 # Albumin 4.7 3.6 # Globulin 3.70 H 2.70 Albumin/Globulin Ratio 1.27 1.33 Hemoglobin A1c 5.7 Exam/Review of Systems Exam Vitals Vital Signs Date Temp Pulse Resp B/P (MAP) Pulse Ox O2 O2 Flow FiO2 Time Delivery Rate 01/06/19 93 16:00 01/06/19 98.2 20 107/59 98 High Flow 15:56 (75) Intake and Output 01/05/19 01/05/19 01/06/19 1414:59 22:59 06:59 IntakeIntake Total 60 ml BalanceBalance 60 ml Results Results 24hrs Laboratory Tests Test 01/05/19 18:14 01/05/19 23:49 01/06/19 05:00 White Blood Count 7.0 5.2 # Red Blood Count 4.50 4.07 L Hemoglobin 12.7 11.5 L Hematocrit 39.4 36.1 L Mean Corpuscular Volume 87.6 88.7 Mean Corpuscular Hemoglobin 28.2 L 28.3 L Mean Corpuscular Hemoglobin Concent 32.2 31.9 L Red Cell Distribution Width 15.9 H 16.1 H Platelet Count 235 219 Mean Platelet Volume 9.8 9.7 Immature Granulocytes % 0.300 0.200 Neutrophils % 55.6 43.8 Lymphocytes % 28.1 35.5 Monocytes % 14.2 H 16.4 H Eosinophils % 1.4 3.3 Basophils % 0.4 0.8 Nucleated Red Blood Cells % 0.0 0.0 Immature Granulocytes # 0.020 0.010 Neutrophils # 3.9 2.3 Lymphocytes # 2.0 1.8 Monocytes # 1.0 H 0.9 Eosinophils # 0.1 0.2 Basophils # 0.0 0.0 Nucleated Red Blood Cells # 0.0 0.0 Sodium Level 134 L 138 Potassium Level 3.6 3.5 Chloride Level 97 101 Carbon Dioxide Level 26 30 Anion Gap 11 7 Blood Urea Nitrogen 14 14 Creatinine 0.61 0.68 Est Glomerular Filtrat Rate mL/min > 60 > 60 Glucose Level 106 99 Calcium Level 9.7 9.3 Total Bilirubin 0.3 0.2 Direct Bilirubin 0.00 0.00 Indirect Bilirubin 0.3 0.2 Aspartate Amino Transf (AST/SGOT) 28 22 Alanine Aminotransferase (ALT/SGPT) 33 25 Alkaline Phosphatase 61 51 Troponin I < 0.012 < 0.012 < 0.012 Total Protein 8.4 H 6.3 # Albumin 4.7 3.6 # Globulin 3.70 H 2.70 Albumin/Globulin Ratio 1.27 1.33 Hemoglobin A1c 5.7 Medications Medication Current Medications Ondansetron HCl (Zofran Inj) 4 mg ER BRIDGE PRN IV NAUSEA/VOMITING; Start 01/05/19 at 19:30; Stop 01/06/19 at 19:29 Acetaminophen (Tylenol Tab) 650 mg ER BRIDGE PRN PO .MILD PAIN 1-3 OR TEMP; Start 01/05/19 at 19:30; Stop 01/06/19 at 19:29 Amlodipine Besylate (Norvasc) 10 mg QHS PO Last administered on 01/05/19at 21:47; Admin Dose 10 MG; Start 01/05/19 at 21:00 Atorvastatin Calcium (Lipitor) 40 mg QHS PO Last administered on 01/05/19at 21:46; Admin Dose 40 MG; Start 01/05/19 at 21:00 Carvedilol (Coreg) 6.25 mg BID PO Last administered on 01/06/19at 08:32; Admin Dose 6.25 MG; Start 01/05/19 at 21:00 Cilostazol (Pletal) 100 mg BID PO Last administered on 01/06/19at 08:32; Admin Dose 100 MG; Start 01/05/19 at 21:00 Docusate Sodium (Colace) 100 mg TID PO Last administered on 01/06/19at 13:32; Admin Dose 100 MG; Start 01/05/19 at 21:00 Hydralazine HCl (Apresoline) 25 mg Q6H PRN PO ELEVATED BLOOD PRESSURE; Start 01/05/19 at 20:30 Ibuprofen (Motrin) 600 mg DAILY PRN PO PAIN; Start 01/05/19 at 20:30 Isosorbide Mononitrate (Imdur) 60 mg DAILY PO Last administered on 01/06/19at 08:33; Admin Dose 60 MG; Start 01/06/19 at 09:00 Leflunomide (Arava) 20 mg DAILY PO Last administered on 01/06/19at 12:10; Admin Dose 20 MG; Start 01/06/19 at 09:00 Sumatriptan Succinate (Imitrex) 50 mg DAILY PRN PO MIGRAINE HEADACHE; Start 01/05/19 at 20:30 Tramadol HCl (Ultram) 50 mg Q6 PO Last administered on 01/06/19at 13:32; Admin Dose 50 MG; Start 01/06/19 at 00:00 IV Flush (NS 3 ml) 3 ml PER PROTOCOL IV ; Start 01/05/19 at 20:30 Acetaminophen/ Hydrocodone Bitart ([place] (5/325)) 1 tab Q6H PRN PO .MOD PAIN 4- 6; Start 01/05/19 at 20:30 Heparin Sodium (Porcine) (Heparin (5000 Units/1ml)) 5,000 unit Q12 SC Last administered on 01/06/19at 08:40; Admin Dose 5,000 UNIT; Start 01/05/19 at 21:00 Magnesium Citrate (Citroma) 300 ml ONCE ONCE PO ; Start 01/06/19 at 17:30; Stop 01/06/19 at 17:31 Polyethylene Glycol (Miralax) 119 gm ONCE ONCE PO ; Start 01/06/19 at 18:30; Stop 01/06/19 at 18:31 Polyethylene Glycol (Miralax) 119 gm 2ND DOSE (GI PREP) ONCE PO ; Start 01/07/19 at 06:00; Stop 01/07/19 at 06:01 Bisacodyl (Dulcolax) 10 mg 2ND DOSE (GI PREP) ONCE PO ; Start 01/07/19 at 08:00; Stop 01/07/19 at 08:01 HARRIET GONZALEZ NP Jan 06, 2019 16:14
[2019-01-06] MEDS ORDERED: MAGNESIUM CITRATE 300 ML BTL PO ONE (17:30)
--- NOTE | 2019-01-06 17:40 | PREAC ---
Date/Time of Note Date/Time of Note DATE: 01/06/19 TIME: 17:39 Anesthesia Eval and Record Evaluation Time Pre-Procedure Interview DATE: 01/06/19 TIME: 17:39 Age 68 Sex female NPO: 8 hrs Preoperative diagnosis Abdominal pain/ Abnormal imaging Planned procedure colonoscopy Past Medical History Past Medical History: Includes Cardio: HTN, Dyslipidemia Musculoskeletal: Rheumatoid arthritis Surgery & Anesthesia Issues No known issue Meds Anticoagulation: No Beta Joanna within 24 hr: No Reason Beta Joanna not given: Pt. not on B-Joanna Active Scripts Hydralazine Hcl* (Hydralazine Hcl*) 25 Mg Tab, 25 MG PO Q6H PRN for ELEVATED BLOOD PRESSURE, #60 TAB Prov:ZEUS MCKEON 01/03/19 Docusate Sodium* (Colace*) 100 Mg Capsule, 100 MG PO TID, #30 CAP Prov:REINALDO PEARSON MD 02/17/18 Hydrocodone/Acetaminophen ([place] 5-325 Tablet) 1 Each Tablet, 1 TAB PO Q6H PRN for PAIN, #7 TAB Prov:REINALDO PEARSON MD 02/17/18 Tramadol HCl (Tramadol HCl) 50 Mg Tablet, 50 MG PO Q6, #20 TAB Prov:ROCHELLE PEREZ DO 08/08/17 Amlodipine Besylate* (Norvasc*) 10 Mg Tablet, 10 MG PO QHS, #30 TAB Prov:ROCHELLE PEREZ DO 08/08/17 Reported Medications Ergocalciferol (Vitamin D2) (VITAMIN D2) 50,000 Unit Capsule, 03139 UNIT PO QTHU, CAP 01/05/19 Clonidine Hcl* (Clonidine Hcl*) 0.1 Mg Tab, 0.1 MG PO Q4H, TAB 01/05/19 Ibuprofen* (Ibuprofen*) 600 Mg Tablet, 600 MG PO DAILY PRN for PAIN, TAB 08/08/17 Sumatriptan Succinate* (Sumatriptan Succinate*) 50 Mg Tablet, 50 MG PO DAILY PRN for MIGRAINE HEADACHE, TAB May repeat after 2 hours if needed; MAX 200 mg/24 hours 03/03/17 Olmesartan/Hydrochlorothiazide (Benicar Hct 40-25 mg Tablet) 1 Each Tablet, 1 EACH PO DAILY, TAB 03/03/17 Isosorbide Mononitrate* (Isosorbide Mononitrate*) 60 Mg Tab.er.24h, 60 MG PO DAILY, TAB 01/06/16 Cilostazol* (Cilostazol*) 100 Mg Tablet, 100 MG PO BID, TAB 01/06/16 Carvedilol* (Carvedilol*) 6.25 Mg Tablet, 6.25 MG PO BID, #60 TAB 01/06/16 Atorvastatin* (Atorvastatin*) 40 Mg Tablet, 40 MG PO QHS, #30 TAB 01/06/16 Leflunomide* (Leflunomide*) 20 Mg Tablet, 20 MG PO DAILY, #30 TAB 01/06/16 Current Medications Ondansetron HCl (Zofran Inj) 4 mg ER BRIDGE PRN IV NAUSEA/VOMITING; Start 01/05/19 at 19:30; Stop 01/06/19 at 19:29 Acetaminophen (Tylenol Tab) 650 mg ER BRIDGE PRN PO .MILD PAIN 1-3 OR TEMP; Start 01/05/19 at 19:30; Stop 01/06/19 at 19:29 Amlodipine Besylate (Norvasc) 10 mg QHS PO Last administered on 01/05/19at 21:47; Admin Dose 10 MG; Start 01/05/19 at 21:00 Atorvastatin Calcium (Lipitor) 40 mg QHS PO Last administered on 01/05/19at 21:46; Admin Dose 40 MG; Start 01/05/19 at 21:00 Carvedilol (Coreg) 6.25 mg BID PO Last administered on 01/06/19at 08:32; Admin Dose 6.25 MG; Start 01/05/19 at 21:00 Cilostazol (Pletal) 100 mg BID PO Last administered on 01/06/19at 08:32; Admin Dose 100 MG; Start 01/05/19 at 21:00 Docusate Sodium (Colace) 100 mg TID PO Last administered on 01/06/19at 13:32; Admin Dose 100 MG; Start 01/05/19 at 21:00 Hydralazine HCl (Apresoline) 25 mg Q6H PRN PO ELEVATED BLOOD PRESSURE; Start 01/05/19 at 20:30 Ibuprofen (Motrin) 600 mg DAILY PRN PO PAIN; Start 01/05/19 at 20:30 Isosorbide Mononitrate (Imdur) 60 mg DAILY PO Last administered on 01/06/19at 08:33; Admin Dose 60 MG; Start 01/06/19 at 09:00 Leflunomide (Arava) 20 mg DAILY PO Last administered on 01/06/19at 12:10; Admin Dose 20 MG; Start 01/06/19 at 09:00 Sumatriptan Succinate (Imitrex) 50 mg DAILY PRN PO MIGRAINE HEADACHE; Start 01/05/19 at 20:30 Tramadol HCl (Ultram) 50 mg Q6 PO Last administered on 01/06/19at 13:32; Admin Dose 50 MG; Start 01/06/19 at 00:00 IV Flush (NS 3 ml) 3 ml PER PROTOCOL IV ; Start 01/05/19 at 20:30 Acetaminophen/ Hydrocodone Bitart ([place] (5/325)) 1 tab Q6H PRN PO .MOD PAIN 4- 6; Start 01/05/19 at 20:30 Heparin Sodium (Porcine) (Heparin (5000 Units/1ml)) 5,000 unit Q12 SC Last ad ministered on 01/06/19at 08:40; Admin Dose 5,000 UNIT; Start 01/05/19 at 21:00 Polyethylene Glycol (Miralax) 119 gm ONCE ONCE PO ; Start 01/06/19 at 18:30; Stop 01/06/19 at 18:31 Polyethylene Glycol (Miralax) 119 gm 2ND DOSE (GI PREP) ONCE PO ; Start 01/07/19 at 06:00; Stop 01/07/19 at 06:01 Bisacodyl (Dulcolax) 10 mg 2ND DOSE (GI PREP) ONCE PO ; Start 01/07/19 at 08:00; Stop 01/07/19 at 08:01 Meds reviewed: Yes Allergies Coded Allergies: Penicillins (Unverified Allergy, Unknown, 01/05/19) hydromorphone (Unverified Adverse Reaction, Severe, 01/05/19) streptomycin (Unverified Adverse Reaction, Unknown, 01/05/19) Uncoded Allergies: PCN (Allergy, Severe, rash for 6 months, 04/30/13) "STREPTOMYCIN" (Adverse Reaction, Unknown, 01/05/19) Allergies Reviewed: Yes Labs/Studies Labs Reviewed: Reviewed by anesthesiologist Result Diagram: 01/06/19 0500 01/06/19 0500 Laboratory Tests 01/06/19 05:00 test: N/A Studies: ECG (SR), CXR (Elevated right hemidiaphragm. Minimal atelectasis in the left mid lung. No consolidations. No pneumothorax. ), 2D Echo (EF 65%) Pre-procedure Exam Last vitals Vital Signs Date Temp Pulse Resp B/P (MAP) Pulse Ox O2 O2 Flow FiO2 Time Delivery Rate 01/06/19 93 16:00 01/06/19 98.2 20 107/59 98 High Flow 15:56 (75) Airway: Adequate mouth opening Mallampati: Mallampati II Teeth: Normal Lung: Normal Heart: Normal ASA Physical Status ASA physical status: 2 Emergency: None Planned Anesthetic General/MAC: MAC Pre-operative Attestations Prior to commencing anesthesia and surgery, the patient was re-evaluated, there was verification of: *The patient's identity *The results of appropriate recent lab work and preoperative vital signs *The above evaluation not changing prior to induction *Anesthetic plan, risk benefits, alternative and complications discussed with patient/family; questions answered; patient/family understands, accepts and wishes to proceed. AVTAR ALFARO Jan 06, 2019 17:40
[2019-01-06] MEDS ORDERED: POLYETHYLENE GLYCOL 3350 119 GM POWDER PO ONE (18:30)
[2019-01-06] MEDS: AMLODIPINE 10 MG TAB PO SCH (21:14)
[2019-01-06] MEDS: ATORVASTATIN 40 MG TAB PO SCH (21:14)
[2019-01-07] VITALS (20 sets, daily range): BP systolic 108–165; BP diastolic 56–80; PULSE 67–103; RESP 14–20
[2019-01-07] MEDS ORDERED: POLYETHYLENE GLYCOL 3350 119 GM POWDER PO ONE (06:00)
[2019-01-07] MEDS: traMADol 50 MG TAB PO SCH ×4 (06:14→23:40)
[2019-01-07] MEDS ORDERED: BISACODYL (EC) 5 MG TAB PO ONE (08:00)
[2019-01-07] MEDS: DOCUSATE SODIUM 100 MG CAP PO SCH ×3 (08:39→20:04)
[2019-01-07] MEDS: CILOSTAZOL 100 MG TAB PO SCH ×2 (08:39→20:05)
[2019-01-07] MEDS: LEFLUNOMIDE 20 MG TAB PO SCH (08:39)
[2019-01-07] MEDS: ISOSORBIDE MONONITRATE(SR)60 MG TAB PO SCH (08:39)
[2019-01-07] MEDS: HEPARIN 5,000 UNIT/1 ML VIAL SC SCH ×2 (09:15→20:09)
--- NOTE | 2019-01-07 09:35 | PDOCDIS ---
Discharge Instructions DIAGNOSIS Discharge Diagnosis 68-year-old female with chest pain most likely due to demand ischemia, resolved Hypertension, well controlled Hyperlipidemia Mesenteric panniculitis Migraine headaches 68-year-old female presented to ER with complaint of chest pain. Initial evaluation was unremarkable. Serial troponins were normal. She was seen in consultation by court monitor. 2D echo was normal. Chest pain was attributed to demand ischemia and due to elevated blood pressure. She also complained of lower abdominal pain. 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 Patient was seen in consultation by GI. She will undergo colonoscopy prior to discharge. Patient had no chest pain or abdominal pain at the time of my visit. Her physical exam was unremarkable. She is in a stable condition for discharge following colonoscopy. Patient will follow up with PCP and GI as outpatient CONDITION Cristina Patient Condition: [id number] Good HOME CARE INSTRUCTIONS: [id number] Diet Instructions: [id number] FOLLOW UP/APPOINTMENTS Follow-up Plan PCP in 1 week GI in 1 week ZARA CASTILLO MD Jan 07, 2019 09:35
--- NOTE | 2019-01-07 11:46 | CONS ---
Assessment/Plan Assessment/Plan Hospital Course (Demo Recall) Hypertension urgency, resolved Preserved ejection fraction Abdominal pain Hypertension -Patient with episodes of recurrent abdominal pain which usually leads to uncontrolled hypertension and then chest pain. Once blood pressure is controlled, she denies any chest discomfort. -Serial cardiac enzymes have remained negative, ECG with no significant ischemic abnormalities. Echocardiogram with preserved ejection fraction. Chest pain likely secondary to hypertension urgency. -Patient undergoing GI evaluation for abdominal pain for abdominal pain Consultation Date/Type/Reason Admit Date/Time Jan 05, 2019 at 19:27 Initial Consult Date 01/06/19 Type of Consult Cardiology Date/Time of Note DATE: 01/07/19 TIME: 11:45 24 HR Interval Summary Free Text/Dictation No shortness of breath, palpitations or chest pain. Complaining of right upper quadrant pain Exam/Review of Systems Vital Signs Vitals Vital Signs Date Temp Pulse Resp B/P (MAP) Pulse Ox O2 O2 Flow FiO2 Time Delivery Rate 01/07/19 98.3 80 20 119/69 96 Room Air 10:56 (86) Intake and Output 01/06/19 01/06/19 01/07/19 1515:00 23:00 07:00 IntakeIntake Total 800 ml 500 ml BalanceBalance 800 ml 500 ml Exam Constitutional: alert, oriented (No apparent distress) Respiratory: clear to auscultation, normal air movement Cardiovascular: regular rate and rhythm (S1-S2 heard) Gastrointestinal: soft, non-tender, bowel sounds Extremities: other (No significant edema) Labs Result Diagram: 01/07/19 0634 01/07/19 0634 Results 24hrs Laboratory Tests Test 01/07/19 06:34 White Blood Count 5.2 Red Blood Count 4.17 L Hemoglobin 11.8 L Hematocrit 37.1 Mean Corpuscular Volume 89.0 Mean Corpuscular Hemoglobin 28.3 L Mean Corpuscular Hemoglobin Concent 31.8 L Red Cell Distribution Width 16.0 H Platelet Count 221 Mean Platelet Volume 9.6 Immature Granulocytes % 0.200 Neutrophils % 42.0 Lymphocytes % 37.0 Monocytes % 17.0 H Eosinophils % 3.2 Basophils % 0.6 Nucleated Red Blood Cells % 0.0 Immature Granulocytes # 0.010 Neutrophils # 2.2 Lymphocytes # 1.9 Monocytes # 0.9 Eosinophils # 0.2 Basophils # 0.0 Nucleated Red Blood Cells # 0.0 Erythrocyte Sedimentation Rate 15 Sodium Level 137 Potassium Level 3.4 L Chloride Level 103 Carbon Dioxide Level 29 Anion Gap 5 Blood Urea Nitrogen 18 Creatinine 0.76 Est Glomerular Filtrat Rate mL/min > 60 Glucose Level 87 Calcium Level 9.2 Phosphorus Level 4.1 Magnesium Level 2.3 C-Reactive Protein 2.0 H Triglycerides Level 130 Cholesterol Level 153 LDL Cholesterol, Calculated 87 HDL Cholesterol 40 Cholesterol/HDL Ratio 3.8 Medications Medications Current Medications Amlodipine Besylate (Norvasc) 10 mg QHS PO Last administered on 01/06/19 21:14; Admin Dose 10 MG; Start 01/05/19 at 21:00 Atorvastatin Calcium (Lipitor) 40 mg QHS PO Last administered on 01/06/19 21:14; Admin Dose 40 MG; Start 01/05/19 at 21:00 Carvedilol (Coreg) 6.25 mg BID PO Last administered on 01/07/19 08:39; Admin Dose 6.25 MG; Start 01/05/19 at 21:00 Cilostazol (Pletal) 100 mg BID PO Last administered on 01/07/19 08:39; Admin Dose 100 MG; Start 01/05/19 at 21:00 Docusate Sodium (Colace) 100 mg TID PO Last administered on 01/07/19 08:39; Admin Dose 100 MG; Start 01/05/19 at 21:00 Hydralazine HCl (Apresoline) 25 mg Q6H PRN PO ELEVATED BLOOD PRESSURE; Start 01/05/19 at 20:30 Ibuprofen (Motrin) 600 mg DAILY PRN PO PAIN; Start 01/05/19 at 20:30 Isosorbide Mononitrate (Imdur) 60 mg DAILY PO Last administered on 01/07/19 08:39; Admin Dose 60 MG; Start 01/06/19 at 09:00 Leflunomide (Arava) 20 mg DAILY PO Last administered on 01/07/19 08:39; Admin Dose 20 MG; Start 01/06/19 at 09:00 Sumatriptan Succinate (Imitrex) 50 mg DAILY PRN PO MIGRAINE HEADACHE; Start 01/05/19 at 20:30 Tramadol HCl (Ultram) 50 mg Q6 PO Last administered on 01/07/19 06:14; Admin Dose 50 MG; Start 01/06/19 at 00:00 IV Flush (NS 3 ml) 3 ml PER PROTOCOL IV ; Start 01/05/19 at 20:30 Acetaminophen/ Hydrocodone Bitart ([place] (5/325)) 1 tab Q6H PRN PO .MOD PAIN 4- 6 Last administered on 01/06/19at 21:14; Admin Dose 1 TAB; Start 01/05/19 at 20:30 Heparin Sodium (Porcine) (Heparin (5000 Units/1ml)) 5,000 unit Q12 SC Last administered on 01/07/19at 09:15; Admin Dose 5,000 UNIT; Start 01/05/19 at 21:00 Rich Bryant DO Jan 07, 2019 11:46
[2019-01-07] MEDS ORDERED: LIDOCAINE 2% (SDV) 5 ML INJ ONE (15:53)
[2019-01-07] MEDS ORDERED: PROPOFOL 60 ML ONE (15:53)
--- NOTE | 2019-01-07 16:34 | PAC ---
Date/Time of Note Date/Time of Note DATE: 01/07/19 TIME: 16:33 Post-Anesthesia Notes Post-Anesthesia Note Last documented vital signs Vital Signs Date Temp Pulse Resp B/P (MAP) Pulse Ox O2 O2 Flow FiO2 Time Delivery Rate 01/07/19 67 16:08 01/07/19 98.2 18 165/78 99 Room Air 16:07 (107) Activity: WNL Respiratory function: WNL Cardiovascular function: WNL Mental status: Baseline Pain reasonably controlled: Yes Hydration appropriate: Yes Nausea/Vomiting absent: Yes Comments BP:105/56, P;78, spo2:100%, T:98,8 LEXUS AVILEZ MD Jan 07, 2019 16:34
--- NOTE | 2019-01-07 16:37 | HPN ---
Date/Time of Note Date/Time of Note DATE: 01/07/19 TIME: 16:37 Interval H&P Admission Note Pt. seen H&P reviewed: No system changes GARLAND LIGHT MD Jan 07, 2019 16:37
[2019-01-07] MEDS ORDERED: FENTAnyl 50 MCG/ML VIAL IV PRN (17:00)
[2019-01-07] MEDS ORDERED: BARIUM SULF 2% 450 ML BTL (BERRY SMOOTHIE) PO ONE (17:00)
[2019-01-07] MEDS ORDERED: ONDANSETRON 4 MG INJ IV PRN (17:00)
[2019-01-07] MEDS ORDERED: EPHEDrine SULFATE 50 MG/5 ML SYG IV PRN (17:00)
[2019-01-07] MEDS ORDERED: DIPHENHYDRAMINE 50 MG INJ IV PRN (17:00)
[2019-01-07] MEDS: ATORVASTATIN 40 MG TAB PO SCH (20:04)
[2019-01-07] MEDS: AMLODIPINE 10 MG TAB PO SCH (20:05)
[2019-01-08] VITALS (8 sets, daily range): BP systolic 127–154; BP diastolic 61–81; PULSE 71–86; RESP 17
[2019-01-08] MEDS: traMADol 50 MG TAB PO SCH ×2 (06:00→12:00)
--- NOTE | 2019-01-08 08:14 | CONS ---
Assessment/Plan Assessment/Plan Assessment/Plan (Daily) Hypertension urgency, resolved Preserved ejection fraction Abdominal pain Hypertension -Patient with episodes of recurrent abdominal pain which usually leads to uncontrolled hypertension and then chest pain. Once blood pressure is controlled, she denies any chest discomfort. -Serial cardiac enzymes have remained negative, ECG with no significant ischemic abnormalities. Echocardiogram with preserved ejection fraction. Chest pain likely secondary to hypertension urgency. -Patient undergoing GI evaluation for abdominal pain for abdominal pain Consultation Date/Type/Reason Admit Date/Time Jan 05, 2019 at 19:27 Initial Consult Date 01/06/19 Type of Consult Cardiology Date/Time of Note DATE: 01/08/19 TIME: 08:14 24 HR Interval Summary Free Text/Dictation The patient stable Exam/Review of Systems Vital Signs Vitals Vital Signs Date Temp Pulse Resp B/P (MAP) Pulse Ox O2 O2 Flow FiO2 Time Delivery Rate 01/08/19 85 08:02 01/08/19 97.8 17 127/69 98 04:15 (88) 01/07/19 Nasal 17:40 Cannula 01/07/19 2.0 16:33 Intake and Output 01/07/19 01/07/19 01/08/19 1515:00 23:00 07:00 IntakeIntake Total 360 ml BalanceBalance 360 ml Labs Result Diagram: 01/07/19 0634 01/07/19 0634 Medications Medications Current Medications Amlodipine Besylate (Norvasc) 10 mg QHS PO Last administered on 01/07/19at 20:05; Admin Dose 10 MG; Start 01/05/19 at 21:00 Atorvastatin Calcium (Lipitor) 40 mg QHS PO Last administered on 01/07/19at 20:04; Admin Dose 40 MG; Start 01/05/19 at 21:00 Carvedilol (Coreg) 6.25 mg BID PO Last administered on 01/07/19at 20:05; Admin Dose 6.25 MG; Start 01/05/19 at 21:00 Cilostazol (Pletal) 100 mg BID PO Last administered on 01/07/19at 20:05; Admin Dose 100 MG; Start 01/05/19 at 21:00 Docusate Sodium (Colace) 100 mg TID PO Last administered on 01/07/19at 20:04; Admin Dose 100 MG; Start 01/05/19 at 21:00 Hydralazine HCl (Apresoline) 25 mg Q6H PRN PO ELEVATED BLOOD PRESSURE; Start 01/05/19 at 20:30 Ibuprofen (Motrin) 600 mg DAILY PRN PO PAIN; Start 01/05/19 at 20:30 Isosorbide Mononitrate (Imdur) 60 mg DAILY PO Last administered on 01/07/19 08:39; Admin Dose 60 MG; Start 01/06/19 at 09:00 Leflunomide (Arava) 20 mg DAILY PO Last administered on 01/07/19at 08:39; Admin Dose 20 MG; Start 01/06/19 at 09:00 Sumatriptan Succinate (Imitrex) 50 mg DAILY PRN PO MIGRAINE HEADACHE; Start 01/05/19 at 20:30 Tramadol HCl (Ultram) 50 mg Q6 PO Last administered on 01/08/19at 06:00; Admin Dose 50 MG; Start 01/06/19 at 00:00 IV Flush (NS 3 ml) 3 ml PER PROTOCOL IV ; Start 01/05/19 at 20:30 Acetaminophen/ Hydrocodone Bitart ([place] (5/325)) 1 tab Q6H PRN PO .MOD PAIN 4- 6 Last administered on 01/06/19at 21:14; Admin Dose 1 TAB; Start 01/05/19 at 2 0:30 Heparin Sodium (Porcine) (Heparin (5000 Units/1ml)) 5,000 unit Q12 SC Last administered on 01/07/19at 20:09; Admin Dose 5,000 UNIT; Start 01/05/19 at 21:00 MAGNOLIA LUNDBERG MD Jan 08, 2019 08:14
--- NOTE | 2019-01-08 08:46 | PDOCDIS ---
Discharge Instructions DIAGNOSIS Discharge Diagnosis 68-year-old female with chest pain most likely due to demand ischemia, resolved Hypertension, well controlled Hyperlipidemia Mesenteric panniculitis Migraine headaches 68-year-old female presented to ER with complaint of chest pain. Initial evaluation was unremarkable. Serial troponins were normal. She was seen in consultation by support technician. 2D echo was normal. Chest pain was attributed to demand ischemia and due to elevated blood pressure. She also complained of lower abdominal pain. 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 Patient was seen in consultation by GI. She underwent colonoscopy. CT enterography was recommended. Patient had no chest pain or abdominal pain at the time of my visit. Her physical exam was unremarkable. She is in a stable condition for discharge following CT. Patient will follow up with PCP and GI as outpatient CONDITION [id number] Patient Condition: [id number] Good HOME CARE INSTRUCTIONS: [id number] Diet Instructions: [id number] FOLLOW UP/APPOINTMENTS Follow-up Plan PCP in 1 week GI in 1 week ZARA CASTILLO MD Jan 08, 2019 08:46
[2019-01-08] MEDS: HEPARIN 5,000 UNIT/1 ML VIAL SC SCH (09:00)
[2019-01-08] MEDS: ISOSORBIDE MONONITRATE(SR)60 MG TAB PO SCH (09:00)
[2019-01-08] MEDS: CILOSTAZOL 100 MG TAB PO SCH (09:00)
[2019-01-08] MEDS: DOCUSATE SODIUM 100 MG CAP PO SCH ×2 (09:00→12:04)
[2019-01-08] MEDS: LEFLUNOMIDE 20 MG TAB PO SCH (09:00)
--- NOTE | 2019-01-08 13:52 | PN ---
Date/Time of Note Date/Time of Note DATE: 01/08/19 TIME: 13:29 Assessment/Plan VTE Prophylaxis Risk score (from Nsg)>0 risk: 2 SCD applied (from Nsg): Yes Pharmacological prophylaxis: heparin Lines/Catheters IV Catheter Type (from Nrsg): Peripheral IV Urinary Cath still in place: No Assessment/Plan Assessment/Plan Assessment: Mesenteric panniculitis -R/o IBD vs other Lower abd pain - resolved S/p Colonoscopy 01/07/19 -8 mm sessile sigmoid polyp -Moderated size internal hemorrhoids -Bx obtained to r/o microscopic, lymphocytic of collagenous colitis HTN- now controlled CP- Trop x3- neg Mildly elevated right hemidiaphragm. Hx of RA Plan: CT enterography to R/o Crohn's disease - spoke to radiology department to make sure the patient is scheduled for CT enterography no a regular CT. Resume diet Patient appears adequate for OP management Patient seen in collaboration with Dr. Juan Subjective: Patient is doing well. She denies abdominal pain, nausea or vomiting. No evidence of overt GI bleeding. Results of Colonoscopy reviewed with the patient and the daughter at the bedside. Patient is awaiting for CT enterography. PHYSICAL EXAMINATION: GENERAL: Well developed, obese, well nourished, alert & oriented x 3, in no acute distress SKIN: No lesions, no stigmata chronic liver disease, no evidence of bleeding diathesis LYMPHATIC: No palpable lymphadenopathy. HEAD: Normocephalic, atraumatic, no tenderness. EYES: Pupils equal reactive to light and accommodation, full extraocular movements, sclera clear, non-icteric, no discharge. EARS/NOSE AND THROAT: Ears normal, nose normal, oropharynx normal, oral membranes well hydrated without lesions. NECK: Supple, no masses, thyroid normal, JVP within normal limits, carotids normal without bruits. CHEST: Inspection within normal limits. CARDIOVASCULAR: Heart: Regular rate and rhythm, no murmurs, gallops or rubs. Per ipheral pulses present within normal limits, no cyanosis, clubbing or edemas. No pulsatile abdominal mass RESPIRATORY: Lungs clear to auscultation and percussion, no wheezing, no rubs GASTROINTESTINAL AND LIVER: Abdomen: Soft, obese, non tenderness, non-distended, no hernias, no masses, no organomegaly, no ascites, no guarding, no rebound tenderness, normoactive bowel sounds. Rectal: Deferred. [no perianal disease, no masses, stool normal, occult blood negative.] GENITOURINARY: Female genitalia within normal limits. EXTREMITIES: No cyanosis, clubbing or edema. Result Diagram: 01/07/1963301/07/19633 CC: GARLAND JUAN MD ; Exam/Review of Systems Exam Vitals Vital Signs Date Temp Pulse Resp B/P (MAP) Pulse Ox O2 O2 Flow FiO2 Time Delivery Rate 01/08/19 82 12:05 01/08/19 98.6 17 149/79 97 Room Air 08:30 (102) 01/07/19 2.0 16:33 Intake and Output 01/07/19 01/07/19 01/08/19 1515:00 23:00 07:00 IntakeIntake Total 360 ml 440 ml BalanceBalance 360 ml 440 ml Medications Medication Current Medications Amlodipine Besylate (Norvasc) 10 mg QHS PO Last administered on 01/07/19 20:05; Admin Dose 10 MG; Start 01/05/19 at 21:00 Atorvastatin Calcium (Lipitor) 40 mg QHS PO Last administered on 01/07/19at 20:04; Admin Dose 40 MG; Start 01/05/19 at 21:00 Carvedilol (Coreg) 6.25 mg BID PO Last administered on 01/07/19 20:05; Admin Dose 6.25 MG; Start 01/05/19 at 21:00 Cilostazol (Pletal) 100 mg BID PO Last administered on 01/07/19at 20:05; Admin Dose 100 MG; Start 01/05/19 at 21:00 Docusate Sodium (Colace) 100 mg TID PO Last administered on 01/07/19at 20:04; Admin Dose 100 MG; Start 01/05/19 at 21:00 Hydralazine HCl (Apresoline) 25 mg Q6H PRN PO ELEVATED BLOOD PRESSURE; Start 01/05/19 at 20:30 Ibuprofen (Motrin) 600 mg DAILY PRN PO PAIN; Start 01/05/19 at 20:30 Isosorbide Mononitrate (Imdur) 60 mg DAILY PO Last administered on 01/07/19at 08:39; Admin Dose 60 MG; Start 01/06/19 at 09:00 Leflunomide (Arava) 20 mg DAILY PO Last administered on 01/07/19at 08:39; Admin Dose 20 MG; Start 01/06/19 at 09:00 Sumatriptan Succinate (Imitrex) 50 mg DAILY PRN PO MIGRAINE HEADACHE; Start 01/05/19 at 20:30 Tramadol HCl (Ultram) 50 mg Q6 PO Last administered on 01/08/19at 06:00; Admin Dose 50 MG; Start 01/06/19 at 00:00 IV Flush (NS 3 ml) 3 ml PER PROTOCOL IV ; Start 01/05/19 at 20:30 Acetaminophen/ Hydrocodone Bitart ([place] (5/325)) 1 tab Q6H PRN PO .MOD PAIN 4- 6 Last administered on 01/06/19at 21:14; Admin Dose 1 TAB; Start 01/05/19 at 20:30 Heparin Sodium (Porcine) (Heparin (5000 Units/1ml)) 5,000 unit Q12 SC Last administered on 01/07/19at 20:09; Admin Dose 5,000 UNIT; Start 01/05/19 at 21:00 MIKHAIL PANTOJA BATT MACHINE OPERATOR Jan 08, 2019 13:50
[2019-01-08] MEDS ORDERED: IOHEXOL 300MG/ML 150 ML BTL ONE (14:04)
[2019-01-08] MEDS ORDERED: SOD CHLORIDE 0.9% 100 ML ONE (14:04)
== END 2019-01-08 15:28 | disposition home or self-care (01) ==
LOC: E/R 17:06 → TEL 19:27
PROVIDERS: ADMIT Internal Medicine; ATTEND Internal Medicine
DX: K65.4 Sclerosing mesenteritis (principal); D12.5 Benign neoplasm of sigmoid colon; R07.9 Chest pain, unspecified; K64.8 Other hemorrhoids; I16.0 Hypertensive urgency; I10 Essential (primary) hypertension; E78.5 Hyperlipidemia, unspecified; M06.9 Rheumatoid arthritis, unspecified
CPT/HCPCS: 36415; 45380; 45385; 71045; 74176; 74177; 80048; 80053; 80061; 83036; 83735; 84100; 84484; 85025; 85651; 86140; 93005; 93306; 96374; 96375; 99285; G0378; J1644; J2270; J2405; Q9967; 88305